=== PATIENT | female | born 1950 | race Caucasian/White ===

== ENCOUNTER → 2018-04-01 14:05 | Outpatient (CLI) | payer OTHER, SELFPAY ==
--- NOTE | 2018-04-01 14:17 | DI.RAD.S_ITS ---
PROCEDURE: XR CHEST 2V INDICATIONS: pain in left side of chest after rowing TECHNIQUE: 2 views of the chest were acquired. COMPARISON: None. FINDINGS: Surgical changes and devices: Arthritic screw within fracture deformity of the distal right clavicle.. Lungs and pleura: No pleural effusions or pneumothorax. Lungs are clear. Mediastinum: Mediastinal contours are normal. Heart size is normal. Bones and chest wall: Bilateral breast implants. No suspicious bony abnormalities. No visible rib fractures. Soft tissues appear unremarkable. IMPRESSION: No acute cardiopulmonary abnormality. Dictated by: Jorge Ocampo M.D. on 04/01/2018 at 14:54 Approved by: Jorge Ocampo M.D. on 04/01/2018 at 14:55
== END ==
PROVIDERS: Visit Provider Physician Assistant
DX: R07.1 Chest pain on breathing (principal)
CPT/HCPCS: 71046

== ENCOUNTER 2018-05-27 20:04 | Emergency (ER) | payer OTHER, SELFPAY ==
[2018-05-27] VITALS (11 sets, daily range): BP systolic 111–128; BP diastolic 62–83; PULSE 81–125; RESP 14–18; TEMP 37; O2SAT 94–98; BMI 24.2
--- NOTE | 2018-05-27 20:35 | ED.ARRPALP ---
HPI - Arrhythmia/Palpitations General Chief Complaint: Arrhythmia/Palpitations Stated Complaint: SKIPING BEATS Time Seen by Provider: 05/27/18 20:26 Source: patient Mode of arrival: ambulatory Limitations: no limitations History of Present Illness HPI narrative: Patient is a 68-year-old female who presents with arm head congestion on heart palpitations. She has not been feeling well for the last couple of days she has mostly been in bed. She has had a lot of head nasal congestion. Some cough. Today she has overall just feeling worse and she feels like her heart is fluttering. She does have a history of PSVT as she was previously on calcium channel blockers however with her doctor she was able to get off of them and has been well controlled for number of years. She is noted to be in atrial flutter here in the ED. She apparently was in [place] 3 weeks ago where she was diagnosed with bronchitis and put on azithromycin. She said that actually worked and she felt much better. She was seen 2 days ago the walk-in clinic for cough sore throat and headache. She was diagnosed with upper respiratory virus without antibiotics. She denies any fever sweats or chills Related Data Previous Rx's Medication Instructions Recorded levofloxacin [Levaquin] 750 mg PO DAILY #5 tab 05/27/18 Allergies Allergy/AdvReac Type Severity Reaction Status Date / Time diazepam [From VALIUM] Allergy Unknown Verified 05/27/18 20:16 morphine [MORPHINE] Allergy Unknown Verified 05/27/18 20:16 Sulfa (Sulfonamide Allergy Unknown Verified 05/27/18 20:16 Antibiotics) [SULFA (SULFONAMIDE ANTIBIOTICS)] Review of Systems Review of Systems All systems reviewed & are unremarkable except as noted in HPI and below Constitutional Reports body ache(s) and Reports headache(s) Eyes Denies change in vision, Denies eye discharge, Denies irritation and Denies loss of vision ENT Ears, Nose, Mouth, and Throat: Reports as per HPI and Reports headache(s) Comments: Head congestion Cardiovascular Reports as per HPI Respiratory Reports cough, Denies pain on inspiration, Denies pain with cough and Denies wheezing Gastrointestinal Gastrointestinal: Denies abdominal pain, Denies change in bowel habits, Denies diarrhea, Denies nausea and Denies vomiting Musculoskeletal Denies back pain, Denies muscle weakness, Denies numbness and Denies tingling Integumentary/Breasts Denies pruritus, Denies erythema, Denies rash and Denies wounds Neurologic Reports headache(s), Denies loss of vision, Denies numbness and Denies tingling Allergic/Immunologic Denies wheezing PFSH Medical History Healthy adult (Acute) Social History Smoking Status: Never smoker Exam Initial Vital Signs Initial Vital Signs: Vital Signs Temperature 98.6 F 05/27/18 20:14 Pulse Rate 106 H 05/27/18 20:14 Respiratory Rate 18 05/27/18 20:14 Blood Pressure 119/68 05/27/18 20:14 Pulse Oximetry 97 05/27/18 20:14 GENERAL: Well-appearing, well-nourished and in no acute distress. HEENT: Head atraumatic,EOMI, pupils reactive, face symmetric, CARDIOVASCULAR: Regular rate and rhythm without murmurs, rubs or gallops. RESPIRATORY: Breath sounds equal bilaterally, no wheezes rales or rhonchi. ABDOMEN: Soft, nontender. Normoactive bowel sounds all 4 quadrants. No guarding or rebound. EXTREMITIES: Normal range of motion, no clubbing or edema. Neurovascularly intact NEUROLOGICAL: Alert and oriented x4.Normal gait and speech. Cranial nerves II through XII grossly intact. SKIN: Warm, dry, no laceration, no petechiae, no rashes or lesions. Course Orders Ordered: ED Orders 05/27/18 20:15 B Type Natriuretic Peptide Stat Complete Blood Count AUTO DIFF Stat Comprehensive Metabolic Panel Stat D Dimer Stat Magnesium Stat Partial Thromboplastin Time Stat Prothrombin Time INR Stat Troponin & CK Cardiac Panel Stat 05/27/18 20:42 XR chest 1V Stat 05/27/18 21:14 CT angio chest PE protocol Stat Discontinued Medications Diltiazem HCl (Cardizem) 10 mg IV NOW ONE Stop: 05/27/18 20:43 Last Admin: 05/27/18 21:12 Dose: Sodium Chloride (Normal Saline 0.9%) 1,000 mls @ 1,000 mls/hr IV CONT PATSY Last Infusion: 05/27/18 22:15 Dose: 0 mls/hr Admin: 05/27/18 21:00 Dose: 1,000 mls/hr Levofloxacin (Levaquin) 750 mg PO NOW ONE Stop: 05/27/18 22:11 Last Admin: 05/27/18 22:19 Dose: 750 mg Vital Signs - 8 hr 05/27/18 20:50 05/27/18 20:55 05/27/18 21:00 Pulse Rate 120 H 122 H 91 H Respiratory Rate 17 17 16 Blood Pressure [Right Arm] 127/83 128/79 122/70 Pulse Oximetry 96 96 95 05/27/18 21:04 05/27/18 21:05 05/27/18 21:10 Pulse Rate 89 90 94 H Respiratory Rate 14 14 16 Blood Pressure [Right Arm] 122/70 122/67 126/68 Pulse Oximetry 94 94 95 05/27/18 21:15 05/27/18 21:45 05/27/18 22:24 Pulse Rate 90 83 81 Respiratory Rate 16 16 15 Blood Pressure [Right Arm] 111/70 122/66 118/62 Pulse Oximetry 94 96 98 MDM - Arrhythmia/Palpitations Lab Data Attestation: I reviewed the patient's lab results. Result diagrams: 05/27/18 20:15 05/27/18 20:15 Lab Results 05/27/18 05/27/18 05/27/18 Range/Units 20:15 20:15 20:15 WBC 3.9 L (4.5-11.0) X10^3/uL RBC 4.74 (4.0-5.2) X10^6/uL Hgb 14.2 (12.0-16.0) g/dL Hct 42.9 (36-46) % MCV 90.4 (80-100) fL MCH 30.0 (26-34) PG MCHC 33.2 (30-36) % RDW 12.7 (11.6-14.8) % Plt Count 249 (150-400) X10^3/uL Neut % (Auto) 24.2 L (50-75) % Lymph % (Auto) 58.2 H (25-40) % [place] % (Auto) 15.9 H (3-14) % Eos % (Auto) 1.4 L (2-4) % Baso % (Auto) 0.3 (0-2) % Neut # (Auto) 900 L (7608-0621) /uL PT 11.3 (10.1-12.7) SECONDS INR 1.1 (0.9-1.3) APTT 33 (26.4-36.2) SECONDS D-Dimer 742 H (<230) ng/mL Sodium 143 (137-145) mmol/L Potassium 3.7 (3.4-5.1) mmol/L Chloride 100 (98-107) mmol/L Carbon Dioxide 34 H (22-32) mmol/L BUN 17 (7-17) mg/dL Creatinine 0.90 (0.52-1.04) mg/dL Estimated GFR > 60.0 (>60) mL/min BUN/Creatinine Ratio 18.9 (6-22) Glucose 108 (80-110) mg/dL Calcium 9.2 (8.4-10.2) mg/dL Magnesium 2.2 (1.6-2.3) mg/dL Total Bilirubin 0.4 (0.2-1.3) mg/dL AST 31 (14-36) IU/L ALT 29 (9-52) IU/L Alkaline Phosphatase 79 (38-126) U/L Total Creatine Kinase 153 H (30-135) U/L CK-MB (CK-2) 1.09 (<2.37) ng/mL CK-MB (CK-2) Rel Index 0.7 L (1.5-5.0) % Troponin I < 0.012 (0.01-0.034) ng/mL B-Natriuretic Peptide 42.3 (<100) Total Protein 8.1 (6.3-8.2) g/dL Albumin 4.2 (3.5-5.0) g/dL Globulin 3.9 (1.7-4.1) g/dL Albumin/Globulin Ratio 1.1 (1.0-2.8) Imaging Data Chest x-ray: Radiologist's impression: PROCEDURE: XR CHEST 1V INDICATIONS: cough congestion, chest pain TECHNIQUE: One view of the chest was acquired. COMPARISON: [facility], , XR CHEST 2V, 04/01/2018, 13:54. FINDINGS: Surgical changes and devices: Bilateral breast implants with partially calcified capsules. Orthopedic screw in the right clavicle is stable. Lungs and pleura: No pleural effusions or pneumothorax. Lungs are clear. Mediastinum: Mediastinal contours appear normal. Heart size is normal. Bones and chest wall: No suspicious bony lesions. Overlying soft tissues appear unremarkable. IMPRESSION: No acute cardiopulmonary disease process. Dictated by: Abril Hayes MD, PhD on 05/27/2018 at 21:32 CT PE: Radiologist's impression: PROCEDURE: CT ANGIO CHEST PE PROTOCOL INDICATIONS: SOB, with +d.dimer and new onset a.fib TECHNIQUE: After the administration of intravenous contrast, 2 mm thick sections acquired from the pulmonary apices to the posterior costophrenic angles. 3-dimensional maximum intensity projection (MIP) coronal and sagittal reformats were then acquired through the thorax. For radiation dose reduction, the following was used: automated exposure control, adjustment of mA and/or kV according to patient size. COMPARISON: [facility], , XR CHEST 1V, 05/27/2018, 20:52. FINDINGS: Image quality: Excellent. Pulmonary arteries: Pulmonary arteries are normal in size, and demonstrate no intraluminal filling defects to suggest central pulmonary embolism. Lungs and pleura: Patchy groundglass opacities noted in the right upper lobe and small tree in bud opacities noted in the right lower lobe concerning for pneumonia. Atelectasis noted in the dependent portion of the lung bases. No pleural effusions or pneumothorax. Central and peripheral airways are patent. Mediastinum: Heart size is normal, without pericardial effusion. Enlarged right hilar lymph nodes are noted with largest node measuring 1.3 cm in short axis. 1.6 right paratracheal enlarged lymph node noted. Bilateral central peribronchial thickening noted. Thoracic aorta is normal in caliber and enhancement. Esophagus is normal in caliber. The small hiatal hernia. Bones and chest wall: Bilateral breast implants with partially calcified capsules noted. No suspicious bony lesions. Ribs and thoracic spine appear intact throughout. Spine degenerative disease and facet arthropathy noted. Thyroid gland contains a 1.2 cm nodule in the right lobe.. No axillary or supraclavicular adenopathy. Abdomen: Visualized upper abdominal solid organs appear normal in the early arterial phase of enhancement. IMPRESSION: 1. No pulmonary embolus. 2. Patchy ground less opacities in the right upper lobe and tree in bud opacities in the right lower lobe suspicious for early pneumonia. 3. Right hilar and mediastinal lymphadenopathy which could be reactive or neoplastic. 4. Bilateral central peribronchial thickening concerning for bronchitis. 5. 1.2 cm right thyroid nodule. Recommend thyroid ultrasound for definitive characterization. Dictated by: Abril Hayes MD, PhD on 05/27/2018 at 21:44 ECG Data Attestation: I personally reviewed and interpreted this ECG as follows: Prior ECG tracings: not available for review Interpretation: EKG 1. On atrial flutter rate [address] changes no T-wave inversions no priors to compare EKG 2. Normal sinus rhythm rate [address] changes MDM Narrative Medical decision making narrative: The patient converted back to sinus rhythm on her own without any medication. CT does reveal ground-glass opacities as she has had body aches and cough all consistent with pneumonia. This can also cause atrial flutter. She does not appear septic she has been afebrile here. Never hypotensive. She overall is feeling much better. Will put her on a course of Levaquin. Discharge Plan Departure Patient Disposition: Home Clinical Impression: Pneumonia, Atrial fibrillation Discharge Date/Time: 05/27/18 22:58 Interventions: ED Discharge Assessment Last Done: 05/27/18 22:57 Instructions: Atrial Fibrillation, DI for Pneumonia -- Adult Activity Restrictions/Additional Instructions: *You have been diagnosed with pneumonia, atrial fibrillation *What to do: Pneumonia likely cause the atrial fibrillation. Fever control, rest, fluids *Continue to take medications as directed Levaquin once a day until gone *Follow up with your primary care provider in 2-3 days *Return to ER if you should have increasing shortness of breath, heart palpitations dizziness, lightheadedness or any new, worsening or concerning symptoms Prescriptions: New levofloxacin [Levaquin] 750 mg tablet 750 mg PO DAILY Qty: 5 RF: 0
--- NOTE | 2018-05-27 20:42 | DI.RAD.S_ITS ---
PROCEDURE: XR CHEST 1V INDICATIONS: cough congestion, chest pain TECHNIQUE: One view of the chest was acquired. COMPARISON: [facility], CR, XR CHEST 2V, 04/01/2018, 13:54. FINDINGS: Surgical changes and devices: Bilateral breast implants with partially calcified capsules. Orthopedic screw in the right clavicle is stable. Lungs and pleura: No pleural effusions or pneumothorax. Lungs are clear. Mediastinum: Mediastinal contours appear normal. Heart size is normal. Bones and chest wall: No suspicious bony lesions. Overlying soft tissues appear unremarkable. IMPRESSION: No acute cardiopulmonary disease process. Dictated by: Abril Hayes MD, PhD on 05/27/2018 at 21:32 Approved by: Abril Hayes MD, PhD on 05/27/2018 at 21:32
--- NOTE | 2018-05-27 20:54 | PC.NURSE ---
While this RN was getting ready to push IV Cardizem pt converted to a NSR rate of 83,approx 30 seconds later she went back into afib rate in 130's. Approx 30 sec later pt converted to a NST rate of 120. Repeat EKG ordered,Dr Wills aware.
[2018-05-27 20:57] LABS: Add Manual Diff / Slide Review NO; Alanine Aminotransferase 29 IU/L (9-52); Albumin 4.2 g/dL (3.5-5.0); Albumin Globulin Ratio 1.1 (1.0-2.8); Alkaline Phosphatase 79 U/L (38-126); Aspartate Aminotransferase 31 IU/L (14-36); BUN Creatinine Ratio 18.9 (6-22); Basophils Percent Auto 0.3 % (0-2); Bilirubin Total 0.4 mg/dL (0.2-1.3); Blood Urea Nitrogen 17 mg/dL (7-17); Calcium 9.2 mg/dL (8.4-10.2); Carbon Dioxide 34 mmol/L (22-32); Chloride 100 mmol/L (98-107); Creatine Kinase 153 U/L (30-135); Eosinophils Percent Auto 1.4 % (2-4); Estimated Glomerular Filt Rate > 60.0 mL/min (>60); Globulin 3.9 g/dL (1.7-4.1); Glucose 108 mg/dL (80-110); HEMOLYSIS < 15 (0-50); Hematocrit 42.9 % (36-46); Hemoglobin 14.2 g/dL (12.0-16.0); Lymphocytes Percent Auto 58.2 % (25-40); Magnesium 2.2 mg/dL (1.6-2.3); Mean Corpuscular HGB Conc 33.2 % (30-36); Mean Corpuscular Volume 90.4 fL (80-100); Monocytes Percent Auto 15.9 % (3-14); Neutrophils Absolute Auto 900 /uL (3000-5900); Neutrophils Percent Auto 24.2 % (50-75); Platelet Count 249 X10^3/uL (150-400); Potassium 3.7 mmol/L (3.4-5.1); Red Blood Cell Count 4.74 X10^6/uL (4.0-5.2); Red Cell Distribution Width 12.7 % (11.6-14.8); Sodium 143 mmol/L (137-145); Total Protein 8.1 g/dL (6.3-8.2); White Blood Cell Count 3.9 X10^3/uL (4.5-11.0)
[2018-05-27] MEDS: SODIUM CHLORIDE 0.9% 1,000 ML 1000 ML IV (21:00)
[2018-05-27 21:01] LABS: INR 1.1 (0.9-1.3); Prothrombin Time 11.3 SECONDS (10.1-12.7)
[2018-05-27 21:04] LABS: PTT Partial Thromboplastin Tim 33 SECONDS (26.4-36.2)
[2018-05-27 21:05] LABS: D Dimer 742 ng/mL (<230)
[2018-05-27 21:12] LABS: CKMB % Relative Index 0.7 % (1.5-5.0); Creatine Kinase MB 1.09 ng/mL (<2.37)
[2018-05-27 21:13] LABS: Troponin I < 0.012 ng/mL (0.01-0.034)
--- NOTE | 2018-05-27 21:14 | DI.CT.S_ITS ---
PROCEDURE: CT ANGIO CHEST PE PROTOCOL INDICATIONS: SOB, with +d.dimer and new onset a.fib TECHNIQUE: After the administration of intravenous contrast, 2 mm thick sections acquired from the pulmonary apices to the posterior costophrenic angles. 3-dimensional maximum intensity projection (MIP) coronal and sagittal reformats were then acquired through the thorax. For radiation dose reduction, the following was used: automated exposure control, adjustment of mA and/or kV according to patient size. COMPARISON: [facility], CR, XR CHEST 1V, 05/27/2018, 20:52. FINDINGS: Image quality: Excellent. Pulmonary arteries: Pulmonary arteries are normal in size, and demonstrate no intraluminal filling defects to suggest central pulmonary embolism. Lungs and pleura: Patchy groundglass opacities noted in the right upper lobe and small tree in bud opacities noted in the right lower lobe concerning for pneumonia. Atelectasis noted in the dependent portion of the lung bases. No pleural effusions or pneumothorax. Central and peripheral airways are patent. Mediastinum: Heart size is normal, without pericardial effusion. Enlarged right hilar lymph nodes are noted with largest node measuring 1.3 cm in short axis. 1.6 right paratracheal enlarged lymph node noted. Bilateral central peribronchial thickening noted. Thoracic aorta is normal in caliber and enhancement. Esophagus is normal in caliber. The small hiatal hernia. Bones and chest wall: Bilateral breast implants with partially calcified capsules noted. No suspicious bony lesions. Ribs and thoracic spine appear intact throughout. Spine degenerative disease and facet arthropathy noted. Thyroid gland contains a 1.2 cm nodule in the right lobe.. No axillary or supraclavicular adenopathy. Abdomen: Visualized upper abdominal solid organs appear normal in the early arterial phase of enhancement. IMPRESSION: 1. No pulmonary embolus. 2. Patchy ground less opacities in the right upper lobe and tree in bud opacities in the right lower lobe suspicious for early pneumonia. 3. Right hilar and mediastinal lymphadenopathy which could be reactive or neoplastic. 4. Bilateral central peribronchial thickening concerning for bronchitis. 5. 1.2 cm right thyroid nodule. Recommend thyroid ultrasound for definitive characterization. Dictated by: Abril Hayes MD, PhD on 05/27/2018 at 21:44 Approved by: Abril Hayes MD, PhD on 05/27/2018 at 21:51
[2018-05-27 21:16] LABS: B Type Natriuretic Peptide 42.3 (<100)
[2018-05-27] MEDS: levoFLOXacin 250 MG TABLET 750 MG PO (22:19)
== END 2018-05-27 22:58 | disposition home or self-care (01) ==
PROVIDERS: Emergency Provider Emergency Medicine
DX: J18.9 Pneumonia, unspecified organism (principal); I48.91 Unspecified atrial fibrillation
CPT/HCPCS: 36415; 36591; 71045; 71275; 80053; 82550; 82553; 83735; 83880; 84484; 85025; 85379; 85610; 85730; 93005; 96360; 99285; Q9967

== ENCOUNTER 2019-01-02 14:25 | Emergency (ER) | payer OTHER, SELFPAY ==
[2019-01-02 14:29] VITALS: BMI 24.5
--- NOTE | 2019-01-02 14:31 | DI.RAD.S_ITS ---
PROCEDURE: XR CHEST 1V INDICATIONS: chest pain TECHNIQUE: One view of the chest was acquired. COMPARISON: [facility], CR, XR CHEST 1V, 05/27/2018, 20:52. [facility], CR, XR CHEST 2V, 04/01/2018, 13:54. FINDINGS: Surgical changes and devices: An internal fixation pin is noted within the distal right clavicle where it fixates a chronic healed fracture. Peripherally calcified bilateral breast implants are again noted, similar to comparison exam. Multiple monitoring leads project over the chest. Lungs and pleura: No pleural effusions or pneumothoraces. There is diffuse right greater than left hazy opacification of the lung bases. There is a 1.0 cm rounded nodular opacity projecting over the right lung base. Mediastinum: Mediastinal contours appear normal. Heart size is normal. Bones and chest wall: No acute osseous abnormality is identified. IMPRESSION: 1. Diffuse hazy bibasilar pulmonary opacities likely representing atelectasis or mild pulmonary edema, with aspiration or pneumonia thought less likely. 2. 1.0 cm rounded nodular opacity projecting over the right lung base is favored to represent a nipple shadow, with a true pulmonary nodule thought less likely. Consider repeat chest radiographs with nipple markers if there is continued clinical concern. Dictated by: Aidan Milian M.D. on 01/02/2019 at 14:44 Approved by: Aidan Milian M.D. on 01/02/2019 at 14:53
[2019-01-02 14:35] VITALS: BP 152/66; PULSE 72; RESP 22; O2SAT 99
[2019-01-02 14:36] VITALS: TEMP 36.7
--- NOTE | 2019-01-02 14:48 | ED.ARRPALP ---
HPI - Arrhythmia/Palpitations <Etelvina Ayoub PA-C - Last Filed: 01/02/19 20:08> General Chief Complaint: Arrhythmia/Palpitations Stated Complaint: states irregular heart beat Time Seen by Provider: 01/02/19 14:48 Source: patient Mode of arrival: ambulatory Limitations: no limitations History of Present Illness HPI narrative: This 68-year-old female returns to ED secondary to recurrent palpitations. She states that onset was about 75 minutes prior to arrival here, and palpitations lasted for about 45 minutes. Resolved when she got here. She states sensation was an irregular pulse that she could feel in her neck, heart to fast and skipping beats. She states that she felt very slight chest tightness and faintness with the palpitations. She states that the degree of irregularity would wax and wane somewhat throughout the 45 minutes but fairly persistent. She states that she was walking at the time that this started, but not as strenuous as her usual walk that she does daily. Sitting down or resting did not seem to resolve it. She states that she tried cough and bearing down as she has with her PSVT in the past and that did not resolve symptoms so thought she should have evaluated. She has been feeling well recently without any illness. She states that she started daily Valtrex about 6 weeks ago, no new medications. She states that she has been taking some vitamins for the last few months, nothing new in the last couple of weeks. She denies chest pain currently. She denies any nausea or vomiting today. She is not feeling lightheaded currently. She denies any new pain or swelling in her extremities or other complaints on systems review. She states that she did see her PCP after episode of atrial flutter seen on her last visit here but there was no EKG to review and did not feel further workup was needed at the time. She states that she did have conveyor monitor placed in the past for a couple of weeks and did not get palpitations while she had it on. Related Data Home Medications Medication Instructions Recorded Confirmed valacyclovir 1,000 mg PO DAILY 01/02/19 Allergies Allergy/AdvReac Type Severity Reaction Status Date / Time diazepam [From VALIUM] Allergy Unknown Verified 01/02/19 14:30 morphine [MORPHINE] Allergy Unknown Verified 01/02/19 14:30 Sulfa (Sulfonamide Allergy Unknown Verified 01/02/19 14:30 Antibiotics) [SULFA (SULFONAMIDE ANTIBIOTICS)] Review of Systems <Etelvina Ayoub PA-C - Last Filed: 01/02/19 20:08> Review of Systems ROS Unobtainable: All systems reviewed & are unremarkable except as noted in HPI and below PFSH <Etelvina Ayoub PA-C - Last Filed: 01/02/19 20:08> Medical History (Updated 01/02/19 @ 20:03 by Etelvina Ayoub PA-C) Atrial flutter (Resolved) History of PSVT (paroxysmal supraventricular tachycardia) (Chronic) Surgical History (Updated 01/02/19 @ 20:03 by Etelvina Ayoub PA-C) No history of previous surgery (Chronic) Social History Smoking Status: Never smoker Social History Smoking Status: Never smoker Exam <Etelvina Ayoub PA-C - Last Filed: 01/02/19 20:08> Narrative Exam Narrative: GENERAL APPEARANCE: Patient sitting comfortably, in no distress. HEENT: PERRL, EOMI, normal oropharynx NECK/THYROID: Neck supple, no JVD. LUNGS: Clear to auscultation bilaterally. HEART: Regular rate and rhythm without murmur, rare single skip, normal S1, S2, no S3 or S4. ABDOMEN: Soft, NT, ND, + BS x 4 quadrants EXTREMITIES: No edema. No calf tenderness NEUROLOGIC: Alert and oriented, normal speech, gait and coordination. Initial Vital Signs Initial Vital Signs: Vital Signs Pulse Rate 72 01/02/19 14:35 Respiratory Rate 22 01/02/19 14:35 Blood Pressure 152/66 H 01/02/19 14:35 Pulse Oximetry 99 01/02/19 14:35 <Priya Wills DO - Last Filed: 01/05/19 07:48> Initial Vital Signs Initial Vital Signs: Vital Signs Pulse Rate 72 01/02/19 14:35 Respiratory Rate 22 01/02/19 14:35 Blood Pressure 152/66 H 01/02/19 14:35 Pulse Oximetry 99 01/02/19 14:35 Scores <Etelvina Ayoub PA-C - Last Filed: 01/02/19 20:08> HEART Score Heart Score history: Slightly Suspicious Heart Score EKG: Normal Heart Score Age: > or = 65 years old Heart Score risk factors: No known risk factors Heart Score troponin: < or = to normal limit Heart Score Total: 2 Course <Etelvina Ayoub PA-C - Last Filed: 01/02/19 20:08> Additional Information: Patient has been completely asymptomatic during her stay here. She had some mild chest discomfort associated with the palpitations, lab workup is negative and she is feeling well now. Reviewed previous finding of atrial flutter with her and question whether this could be a recurrence of that or atrial fibrillation verses PSVT (it did not resolve as usual). She states that she did follow up with her PCP but no further workup was done at that time. She has had monitoring done in the past prior to this. Advised to start low-dose ASA once daily in case she is having paroxysmal AFib/flutter. Advised follow-up with PCP this week and given previous EKG from May that was of concern as well as today's. She agreed to return to ED if any acutely worsening symptoms again Orders Ordered: Discontinued Medications Aspirin (Aspirin Chew) 324 mg PO NOW ONE Stop: 01/02/19 14:32 Last Admin: 01/02/19 15:00 Dose: Not Given Sodium Chloride (Normal Saline 0.9%) 1,000 mls @ 150 mls/hr IV CONT PATSY Last Infusion: 01/02/19 16:08 Dose: 0 mls/hr Admin: 01/02/19 14:56 Dose: 150 mls/hr Vital Signs - 8 hr 01/02/19 14:35 01/02/19 14:36 01/02/19 15:00 Temperature 98.0 F Pulse Rate 72 64 Respiratory Rate 22 16 Blood Pressure Blood Pressure [Left Arm] 152/66 H 128/73 Pulse Oximetry 99 97 01/02/19 16:08 01/02/19 16:17 Temperature Pulse Rate 71 57 L Respiratory Rate 15 16 Blood Pressure 131/69 Blood Pressure [Left Arm] 141/72 H Pulse Oximetry 99 100 <Priya Wills DO - Last Filed: 01/05/19 07:48> Orders Ordered: Discontinued Medications Aspirin (Aspirin Chew) 324 mg PO NOW ONE Stop: 01/02/19 14:32 Last Admin: 04/29/19 15:00 Dose: Not Given Sodium Chloride (Normal Saline 0.9%) 1,000 mls @ 150 mls/hr IV CONT PATSY Last Infusion: 01/02/19 16:08 Dose: 0 mls/hr Admin: 01/02/19 14:56 Dose: 150 mls/hr Vital Signs - 8 hr 01/02/19 14:35 01/02/19 14:36 01/02/19 15:00 Temperature 98.0 F Pulse Rate 72 64 Respiratory Rate 22 16 Blood Pressure Blood Pressure [Left Arm] 152/66 H 128/73 Pulse Oximetry 99 97 01/02/19 16:08 01/02/19 16:17 Temperature Pulse Rate 71 57 L Respiratory Rate 15 16 Blood Pressure 131/69 Blood Pressure [Left Arm] 141/72 H Pulse Oximetry 99 100 MDM - Arrhythmia/Palpitations <Etelvina Ayoub PA-C - Last Filed: 01/02/19 20:08> Lab Data Attestation: I reviewed the patient's lab results. Result diagrams: 01/02/19 14:40 01/02/19 14:40 Lab Results 01/02/19 01/02/19 01/02/19 Range/Units 14:40 14:40 14:40 WBC 3.9 L (4.5-11.0) X10^3/uL RBC 4.18 (4.0-5.2) X10^6/uL Hgb 13.1 (12.0-16.0) g/dL Hct 38.7 (36-46) % MCV 92.7 (80-100) fL MCH 31.4 (26-34) PG MCHC 33.9 (30-36) % RDW 14.7 (11.6-14.8) % Plt Count 211 (150-400) X10^3/uL Neut % (Auto) Not Reportable Lymph % (Auto) Not Reportable [place] % (Auto) Not Reportable Eos % (Auto) Not Reportable Baso % (Auto) Not Reportable Lymph # (Auto) Not Reportable [place] # (Auto) Not Reportable Baso # (Auto) Not Reportable Total Counted 100 Seg Neutrophils % 20.0 L (38-70) % Band Neutrophils % 1.0 L (3-7) % Lymphocytes % (Manual) 63.0 H (25-45) % Atypical Lymphs % 8.0 H ( - 0) % Monocytes % (Manual) 7.0 (2-11) % Eosinophils % (Manual) 1.0 L (2-4) % Neutrophils # (Manual) 819 L (3975-0663) /uL RBC Morphology Normal morphology Smear Path Review Sodium 137 (137-145) mmol/L Potassium 3.5 (3.4-5.1) mmol/L Chloride 100 (98-107) mmol/L Carbon Dioxide 28 (22-32) mmol/L BUN 16 (7-17) mg/dL Creatinine 0.80 (0.52-1.04) mg/dL Estimated GFR > 60.0 (>60) mL/min BUN/Creatinine Ratio 20.0 (6-22) Glucose 84 (80-110) mg/dL Calcium 9.0 (8.4-10.2) mg/dL Magnesium 1.5 L (1.6-2.3) mg/dL Total Bilirubin 0.4 (0.2-1.3) mg/dL AST 30 (14-36) IU/L ALT 24 (9-52) IU/L Alkaline Phosphatase 84 (38-126) U/L Total Creatine Kinase 110 (30-135) U/L CK-MB (CK-2) 1.58 (<2.37) ng/mL CK-MB (CK-2) Rel Index 1.4 L (1.5-5.0) % Troponin I < 0.012 (0.01-0.034) ng/mL Total Protein 7.6 (6.3-8.2) g/dL Albumin 4.4 (3.5-5.0) g/dL Globulin 3.2 (1.7-4.1) g/dL Albumin/Globulin Ratio 1.4 (1.0-2.8) Lipase 105 (23-300) U/L Imaging Data Chest x-ray: Radiologist's impression: 32 Etelvina Ayoub PA-C Find Patient Imaging Jinny Saunders 68 F 1950 ACTIVITY DATE EXAM STATUS AUTHOR 01/02/19 14:[address] [address] XRay Report Signed Patient: Ham Saundersidi GMR#: [id number] : 8Acct:[id number] Age/Sex: 68 / FDate of Service: 01/02/19 Loc: ED Accession Number: [id number] Procedure: XR chest 1V Ordering Provider: Priya Wills D.O. PROCEDURE: XR CHEST 1V INDICATIONS: chest pain TECHNIQUE: One view of the chest was acquired. COMPARISON: [facility], CR, XR CHEST 1V, 05/27/2018, 20:52. [facility], CR, XR CHEST 2V, 04/01/2018, 13:54. FINDINGS: Surgical changes and devices: An internal fixation pin is noted within the distal right clavicle where it fixates a chronic healed fracture. Peripherally calcified bilateral breast implants are again noted, similar to comparison exam. Multiple monitoring leads project over the chest. Lungs and pleura: No pleural effusions or pneumothoraces. There is diffuse right greater than left hazy opacification of the lung bases. There is a 1.0 cm rounded nodular opacity projecting over the right lung base. Mediastinum: Mediastinal contours appear normal. Heart size is normal. Bones and chest wall: No acute osseous abnormality is identified. IMPRESSION: 1. Diffuse hazy bibasilar pulmonary opacities likely representing atelectasis or mild pulmonary edema, with aspiration or pneumonia thought less likely. 2. 1.0 cm rounded nodular opacity projecting over the right lung base is favored to represent a nipple shadow, with a true pulmonary nodule thought less likely. Consider repeat chest radiographs with nipple markers if there is continued clinical concern. Dictated by: Aidan Milian M.D. on 01/02/2019 at 14:44 Approved by: Aidan Milian M.D. on 01/02/2019 at 14:53 ECG Data Attestation: I personally reviewed and interpreted this ECG as follows: (Normal sinus rhythm, rate 75, normal axis) <Priya Wills DO - Last Filed: 01/05/19 07:48> Lab Data Attestation: I reviewed the patient's lab results. Lab Results 01/02/19 01/02/19 01/02/19 Range/Units 14:40 14:40 14:40 WBC 3.9 L (4.5-11.0) X10^3/uL RBC 4.18 (4.0-5.2) X10^6/uL Hgb 13.1 (12.0-16.0) g/dL Hct 38.7 (36-46) % MCV 92.7 (80-100) fL MCH 31.4 (26-34) PG MCHC 33.9 (30-36) % RDW 14.7 (11.6-14.8) % Plt Count 211 (150-400) X10^3/uL Neut % (Auto) Not Reportable Lymph % (Auto) Not Reportable [place] % (Auto) Not Reportable Eos % (Auto) Not Reportable Baso % (Auto) Not Reportable Lymph # (Auto) Not Reportable [place] # (Auto) Not Reportable Baso # (Auto) Not Reportable Total Counted 100 Seg Neutrophils % 20.0 L (38-70) % Band Neutrophils % 1.0 L (3-7) % Lymphocytes % (Manual) 63.0 H (25-45) % Atypical Lymphs % 8.0 H ( - 0) % Monocytes % (Manual) 7.0 (2-11) % Eosinophils % (Manual) 1.0 L (2-4) % Neutrophils # (Manual) 819 L (9488-6165) /uL RBC Morphology Normal morphology Smear Path Review Sodium 137 (137-145) mmol/L Potassium 3.5 (3.4-5.1) mmol/L Chloride 100 (98-107) mmol/L Carbon Dioxide 28 (22-32) mmol/L BUN 16 (7-17) mg/dL Creatinine 0.80 (0.52-1.04) mg/dL Estimated GFR > 60.0 (>60) mL/min BUN/Creatinine Ratio 20.0 (6-22) Glucose 84 (80-110) mg/dL Calcium 9.0 (8.4-10.2) mg/dL Magnesium 1.5 L (1.6-2.3) mg/dL Total Bilirubin 0.4 (0.2-1.3) mg/dL AST 30 (14-36) IU/L ALT 24 (9-52) IU/L Alkaline Phosphatase 84 (38-126) U/L Total Creatine Kinase 110 (30-135) U/L CK-MB (CK-2) 1.58 (<2.37) ng/mL CK-MB (CK-2) Rel Index 1.4 L (1.5-5.0) % Troponin I < 0.012 (0.01-0.034) ng/mL Total Protein 7.6 (6.3-8.2) g/dL Albumin 4.4 (3.5-5.0) g/dL Globulin 3.2 (1.7-4.1) g/dL Albumin/Globulin Ratio 1.4 (1.0-2.8) Lipase 105 (23-300) U/L ECG Data Attestation: I personally reviewed and interpreted this ECG as follows: Prior ECG tracings: available for review Interpretation: Normal sinus rhythm rate [address] changes or T-wave inversions appear interval 176 QTC 438 Discharge Plan Departure Patient Disposition: Home Clinical Impression: Palpitations Discharge Date/Time: 01/02/19 16:20 Interventions: ED Discharge Assessment Last Done: 01/02/19 16:19 Instructions: DI for Arrhythmias, DI for Palpitations Activity Restrictions/Additional Instructions: As we talked about, please return to the closest ED right away if you have acutely worsening symptoms again. Otherwise, please start 1 baby aspirin (81 mg) daily every day in case you are having intermittent episodes of atrial fibrillation/flutter again. On the EKG today, your heart rhythm was normal, but you did have that previously when you were here, and in some people this happened on and off just like your SVT has in the past. The aspirin can help to reduce risk of stroke related to that rhythm if you do have it, so it makes sense to take it until you follow up with your doctor in [place] and determine what to do next for workup. You may need to have another heart monitor done again. Please see your PCP for follow up this week Prescriptions: No Action valacyclovir 1 gram Tablet 1,000 mg PO DAILY RF: 0 Referrals: Manish Mac [Other] <Priya Wills DO - Last Filed: 01/05/19 07:48> Cosign ED Attending Naya Attestation: I was immediately available in the department for consultation. Documentation has been reviewed. I agree with assessment and plan.
[2019-01-02 14:56] LABS: Hematocrit 38.7 % (36-46); Hemoglobin 13.1 g/dL (12.0-16.0); Mean Corpuscular HGB Conc 33.9 % (30-36); Mean Corpuscular Hemoglobin 31.4 PG (26-34); Mean Corpuscular Volume 92.7 fL (80-100); Platelet Count 211 X10^3/uL (150-400); Red Blood Cell Count 4.18 X10^6/uL (4.0-5.2); Red Cell Distribution Width 14.7 % (11.6-14.8); White Blood Cell Count 3.9 X10^3/uL (4.5-11.0)
[2019-01-02] MEDS: SODIUM CHLORIDE 0.9% 1,000 ML 150 ML IV (14:56)
[2019-01-02 14:57] LABS: Add Manual Diff / Slide Review YES
[2019-01-02 15:00] VITALS: BP 128/73; PULSE 64; RESP 16; O2SAT 97
--- NOTE | 2019-01-02 15:09 | ED_ITS ---
HPI - Arrhythmia/Palpitations <Etelvina Ayoub PA-C - Last Filed: 01/02/19 20:08> General Chief Complaint: Arrhythmia/Palpitations Stated Complaint: states irregular heart beat Time Seen by Provider: 01/02/19 14:48 Source: patient Mode of arrival: ambulatory Limitations: no limitations History of Present Illness HPI narrative: This 68-year-old female returns to ED secondary to recurrent p alpitations. She states that onset was about 75 minutes prior to arrival here, and palpitations lasted for about 45 minutes. Resolved when she got here. She states sensation was an irregular pulse that she could feel in her neck, heart to fast and skipping beats. She states that she felt very slight chest tightness and faintness with the palpitations. She states that the degree of irregularity would wax and wane somewhat throughout the 45 minutes but fairly persistent. She states that she was walking at the time that this started, but not as strenuous as her usual walk that she does daily. Sitting down or resting did not seem to resolve it. She states that she tried cough and bearing down as she has with her PSVT in the past and that did not resolve symptoms so thought she should have evaluated. She has been feeling well recently without any illness. She states that she started daily Valtrex about 6 weeks ago, no new medications. She states that she has been taking some vitamins for the last few months, nothing new in the last couple of weeks. She denies chest pain curren tly. She denies any nausea or vomiting today. She is not feeling lightheaded currently. She denies any new pain or swelling in her extremities or other complaints on systems review. She states that she did see her PCP after episode of atrial flutter seen on her last visit here but there was no EKG to review and did not feel further workup was needed at the time. She states that she did have satellite project site monitor placed in the past for a couple of weeks and did not get palpitations while she had it on. Related Data Home Medications Medication Instructions Recorded Confirmed valacyclovir 1,000 mg PO DAILY 01/02/19 Allergies Allergy/AdvReac Type Severity Reaction Status Date / Time diazepam [From VALIUM] Allergy Unknown Verified 01/02/19 14:30 morphine [MORPHINE] Allergy Unknown Verified 01/02/19 14:30 Sulfa (Sulfonamide Allergy Unknown Verified 01/02/19 14:30 Antibiotics) [SULFA (SULFONAMIDE ANTIBIOTICS)] Review of Systems <Etelvina Ayoub PA-C - Last Filed: 01/02/19 20:08> Review of Systems ROS Unobtainable: All systems reviewed & are unremarkable except as noted in HPI and below PFSH <Etelvina Ayoub PA-C - Last Filed: 01/02/19 20:08> Medical History (Updated 01/02/19 @ 20:03 by Etelvina Ayoub PA-C) Atrial flutter (Resolved) History of PSVT (paroxysmal supraventricular tachycardia) (Chronic) Surgical History (Updated 01/02/19 @ 20:03 by Etelvina Ayoub PA-C) No history of previous surgery (Chronic) Social History Smoking Status: Never smoker Social History Smoking Status: Never smoker Exam <Etelvina Ayoub PA-C - Last Filed: 01/02/19 20:08> Narrative Exam Narrative: GENERAL APPEARANCE: Patient sitting comfortably, in no distress. HEENT: PERRL, EOMI, normal oropharynx NECK/THYROID: Neck supple, no JVD. LUNGS: Clear to auscultation bilaterally. HEART: Regular rate and rhythm without murmur, rare single skip, normal S1, S2, no S3 or S4. ABDOMEN: Soft, NT, ND, + BS x 4 quadrants EXTREMITIES: No edema. No calf tenderness NEUROLOGIC: Alert and oriented, normal speech, gait and coordination. Initial Vital Signs Initial Vital Signs: Vital Signs Pulse Rate 72 01/02/19 14:35 Respiratory Rate 22 01/02/19 14:35 Blood Pressure 152/66 H 01/02/19 14:35 Pulse Oximetry 99 01/02/19 14:35 <Priya Wills DO - Last Filed: 01/05/19 07:48> Initial Vital Signs Initial Vital Signs: Vital Signs Pulse Rate 72 01/02/19 14:35 Respiratory Rate 22 01/02/19 14:35 Blood Pressure 152/66 H 01/02/19 14:35 Pulse Oximetry 99 01/02/19 14:35 Scores <Etelvina Ayoub PA-C - Last Filed: 01/02/19 20:08> HEART Score Heart Score history: Slightly Suspicious Heart Score EKG: Normal Heart Score Age: > or = 65 years old Heart Score risk factors: No known risk factors Heart Score troponin: < or = to normal limit Heart Score Total: 2 Course <Etelvina Ayoub PA-C - Last Filed: 01/02/19 20:08> Additional Information: Patient has been completely asymptomatic during her stay here. She had some mild chest discomfort associated with the palpitations, lab workup is negative and she is feeling well now. Reviewed previous finding of atrial flutter with her and question whether this could be a recurrence of that or atrial fibrillation verses PSVT (it did not resolve as usual). She states that she did follow up with her PCP but no further workup was done at that time. She has had monitoring done in the past prior to this. Advised to start low- dose ASA once daily in case she is having paroxysmal AFib/flutter. Advised follow-up with PCP this week and given previous EKG from May that was of concern as well as today's. She agreed to return to ED if any acutely worsening symptoms again Orders Ordered: Discontinued Medications Aspirin (Aspirin Chew) 324 mg PO NOW ONE Stop: 01/02/19 14:32 Last Admin: 01/02/19 15:00 Dose: Not Given Sodium Chloride (Normal Saline 0.9%) 1,000 mls @ 150 mls/hr IV CONT PATSY Last Infusion: 01/02/19 16:08 Dose: 0 mls/hr Admin: 01/02/19 14:56 Dose: 150 mls/hr Vital Signs - 8 hr 01/02/19 14:35 01/02/19 14:36 01/02/19 15:00 Temperature 98.0 F Pulse Rate 72 64 Respiratory Rate 22 16 Blood Pressure Blood Pressure [Left Arm] 152/66 H 128/73 Pulse Oximetry 99 97 01/02/19 16:08 01/02/19 16:17 Temperature Pulse Rate 71 57 L Respiratory Rate 15 16 Blood Pressure 131/69 Blood Pressure [Left Arm] 141/72 H Pulse Oximetry 99 100 <Priya Wills DO - Last Filed: 01/05/19 07:48> Orders Ordered: Discontinued Medications Aspirin (Aspirin Chew) 324 mg PO NOW ONE Stop: 01/02/19 14:32 Last Admin: 01/02/19 15:00 Dose: Not Given Sodium Chloride (Normal Saline 0.9%) 1,000 mls @ 150 mls/hr IV CONT PATSY Last Infusion: 01/02/19 16:08 Dose: 0 mls/hr Admin: 01/02/19 14:56 Dose: 150 mls/hr Vital Signs - 8 hr 01/02/19 14:35 01/02/19 14:36 01/02/19 15:00 Temperature 98.0 F Pulse Rate 72 64 Respiratory Rate 22 16 Blood Pressure Blood Pressure [Left Arm] 152/66 H 128/73 Pulse Oximetry 99 97 01/02/19 16:08 01/02/19 16:17 Temperature Pulse Rate 71 57 L Respiratory Rate 15 16 Blood Pressure 131/69 Blood Pressure [Left Arm] 141/72 H Pulse Oximetry 99 100 MDM - Arrhythmia/Palpitations <Etelvina Ayoub PA-C - Last Filed: 01/02/19 20:08> Lab Data Attestation: I reviewed the patient's lab results. Result diagrams: 01/02/19 14:40 01/02/19 14:40 Lab Results 01/02/19 01/02/19 01/02/19 Range/Units 14:40 14:40 14:40 WBC 3.9 L (4.5-11.0) X10^3/uL RBC 4.18 (4.0-5.2) X10^6/uL Hgb 13.1 (12.0-16.0) g/dL Hct 38.7 (36-46) % MCV 92.7 (80-100) fL MCH 31.4 (26-34) PG MCHC 33.9 (30-36) % RDW 14.7 (11.6-14.8) % Plt Count 211 (150-400) X10^3/uL Neut % (Auto) Not Reportable Lymph % (Auto) Not Reportable [place] % (Auto) Not Reportable Eos % (Auto) Not Reportable Baso % (Auto) Not Reportable Lymph # (Auto) Not Reportable [place] # (Auto) Not Reportable Baso # (Auto) Not Reportable Total Counted 100 Seg Neutrophils % 20.0 L (38-70) % Band Neutrophils % 1.0 L (3-7) % Lymphocytes % (Manual) 63.0 H (25-45) % Atypical Lymphs % 8.0 H ( - 0) % Monocytes % (Manual) 7.0 (2-11) % Eosinophils % (Manual) 1.0 L (2-4) % Neutrophils # (Manual) 819 L (5997-8656) /uL RBC Morphology Normal morphology Smear Path Review Sodium 137 (137-145) mmol/L Potassium 3.5 (3.4-5.1) mmol/L Chloride 100 (98-107) mmol/L Carbon Dioxide 28 (22-32) mmol/L BUN 16 (7-17) mg/dL Creatinine 0.80 (0.52-1.04) mg/dL Estimated GFR > 60.0 (>60) mL/min BUN/Creatinine Ratio 20.0 (6-22) Glucose 84 (80-110) mg/dL Calcium 9.0 (8.4-10.2) mg/dL Magnesium 1.5 L (1.6-2.3) mg/dL Total Bilirubin 0.4 (0.2-1.3) mg/dL AST 30 (14-36) IU/L ALT 24 (9-52) IU/L Alkaline Phosphatase 84 (38-126) U/L Total Creatine Kinase 110 (30-135) U/L CK-MB (CK-2) 1.58 (<2.37) ng/mL CK-MB (CK-2) Rel Index 1.4 L (1.5-5.0) % Troponin I < 0.012 (0.01-0.034) ng/mL Total Protein 7.6 (6.3-8.2) g/dL Albumin 4.4 (3.5-5.0) g/dL Globulin 3.2 (1.7-4.1) g/dL Albumin/Globulin Ratio 1.4 (1.0-2.8) Lipase 105 (23-300) U/L Imaging Data Chest x-ray: Radiologist's impression: 32 Etelvina Ayoub PA-C Find Patient Imaging Jinny Saunders 68 F 1950 ACTIVITY DATE EXAM STATUS AUTHOR 01/02/19 14:[address] [address] XRay Report Signed Patient: Jinny Saunders GMR#: [id number] : 8Acct:[id number] Age/Sex: 68 / FDate of Service: 01/02/19 Loc: ED Accession Number: [id number] Procedure: XR chest 1V Ordering Provider: Priya Wills D.O. PROCEDURE: XR CHEST 1V INDICATIONS: chest pain TECHNIQUE: One view of the chest was acquired. COMPARISON: [facility], CR, XR CHEST 1V, 05/27/2018, 20:52. [facility], CR, XR CHEST 2V, 04/01/2018, 13:54. FINDINGS: Surgical changes and devices: An internal fixation pin is noted within the distal right clavicle where it fixates a chronic healed fracture. Peripherally calcified bilateral breast implants are again noted, similar to comparison exam. Multiple monitoring leads project over the chest. Lungs and pleura: No pleural effusions or pneumothoraces. There is diffuse right greater than left hazy opacification of the lung bases. There is a 1.0 cm rounded nodular opacity projecting over the right lung base. Mediastinum: Mediastinal contours appear normal. Heart size is normal. Bones and chest wall: No acute osseous abnormality is identified. IMPRESSION: 1. Diffuse hazy bibasilar pulmonary opacities likely representing atelectasis or mild pulmonary edema, with aspiration or pneumonia thought less likely. 2. 1.0 cm rounded nodular opacity projecting over the right lung base is favored to represent a nipple shadow, with a true pulmonary nodule thought less likely. Consider repeat chest radiographs with nipple markers if there is continued clinical concern. Dictated by: Aidan Milian M.D. on 01/02/2019 at 14:44 Approved by: Aidan Milian M.D. on 01/02/2019 at 14:53 ECG Data Attestation: I personally reviewed and interpreted this ECG as follows: (Normal sinus rhythm, rate 75, normal axis) <Priya Wills DO - Last Filed: 01/05/19 07:48> Lab Data Attestation: I reviewed the patient's lab results. Lab Results 01/02/19 01/02/19 01/02/19 Range/Units 14:40 14:40 14:40 WBC 3.9 L (4.5-11.0) X10^3/uL RBC 4.18 (4.0-5.2) X10^6/uL Hgb 13.1 (12.0-16.0) g/dL Hct 38.7 (36-46) % MCV 92.7 (80-100) fL MCH 31.4 (26-34) PG MCHC 33.9 (30-36) % RDW 14.7 (11.6-14.8) % Plt Count 211 (150-400) X10^3/uL Neut % (Auto) Not Reportable Lymph % (Auto) Not Reportable [place] % (Auto) Not Reportable Eos % (Auto) Not Reportable Baso % (Auto) Not Reportable Lymph # (Auto) Not Reportable [place] # (Auto) Not Reportable Baso # (Auto) Not Reportable Total Counted 100 Seg Neutrophils % 20.0 L (38-70) % Band Neutrophils % 1.0 L (3-7) % Lymphocytes % (Manual) 63.0 H (25-45) % Atypical Lymphs % 8.0 H ( - 0) % Monocytes % (Manual) 7.0 (2-11) % Eosinophils % (Manual) 1.0 L (2-4) % Neutrophils # (Manual) 819 L (5969-2106) /uL RBC Morphology Normal morphology Smear Path Review Sodium 137 (137-145) mmol/L Potassium 3.5 (3.4-5.1) mmol/L Chloride 100 (98-107) mmol/L Carbon Dioxide 28 (22-32) mmol/L BUN 16 (7-17) mg/dL Creatinine 0.80 (0.52-1.04) mg/dL Estimated GFR > 60.0 (>60) mL/min BUN/Creatinine Ratio 20.0 (6-22) Glucose 84 (80-110) mg/dL Calcium 9.0 (8.4-10.2) mg/dL Magnesium 1.5 L (1.6-2.3) mg/dL Total Bilirubin 0.4 (0.2-1.3) mg/dL AST 30 (14-36) IU/L ALT 24 (9-52) IU/L Alkaline Phosphatase 84 (38-126) U/L Total Creatine Kinase 110 (30-135) U/L CK-MB (CK-2) 1.58 (<2.37) ng/mL CK-MB (CK-2) Rel Index 1.4 L (1.5-5.0) % Troponin I < 0.012 (0.01-0.034) ng/mL Total Protein 7.6 (6.3-8.2) g/dL Albumin 4.4 (3.5-5.0) g/dL Globulin 3.2 (1.7-4.1) g/dL Albumin/Globulin Ratio 1.4 (1.0-2.8) Lipase 105 (23-300) U/L ECG Data Attestation: I personally reviewed and interpreted this ECG as follows: Prior ECG tracings: available for review Interpretation: Normal sinus rhythm rate [address] changes or T-wave inversions appear interval 176 QTC 438 Discharge Plan Departure Patient Disposition: Home Clinical Impression: Palpitations Discharge Date/Time: 01/02/19 16:20 Interventions: ED Discharge Assessment Last Done: 01/02/19 16:19 Instructions: DI for Arrhythmias, DI for Palpitations Activity Restrictions/Additional Instructions: As we talked about, please return to the closest ED right away if you have acutely worsening symptoms again. Otherwise, please start 1 baby aspirin (81 mg) daily every day in case you are having intermittent episodes of atrial fibrillation/flutter again. On the EKG today, your heart rhythm was normal, but you did have that previously when you were here, and in some people this happened on and off just like your SVT has in the past. The aspirin can help to reduce risk of stroke related to that rhythm if you do have it, so it makes sense to take it until you follow up with your doctor in [place] and determine what to do next for workup. You may need to have another heart monitor done again. Please see your PCP for follow up this week Prescriptions: No Action valacyclovir 1 gram Tablet 1,000 mg PO DAILY RF: 0 Referrals: Manish Mac [Other] <Priya Wills DO - Last Filed: 01/05/19 07:48> Cosign ED Attending Kirbyature Attestation: I was immediately available in the department for consultation. Documentation has been reviewed. I agree with assessment and plan.
[2019-01-02 15:12] LABS: Magnesium 1.5 mg/dL (1.6-2.3)
[2019-01-02 15:17] LABS: Alanine Aminotransferase 24 IU/L (9-52); Albumin 4.4 g/dL (3.5-5.0); Albumin Globulin Ratio 1.4 (1.0-2.8); Alkaline Phosphatase 84 U/L (38-126); Aspartate Aminotransferase 30 IU/L (14-36); Bilirubin Total 0.4 mg/dL (0.2-1.3); Blood Urea Nitrogen 16 mg/dL (7-17); Carbon Dioxide 28 mmol/L (22-32); Chloride 100 mmol/L (98-107); Creatine Kinase 110 U/L (30-135); Estimated Glomerular Filt Rate > 60.0 mL/min (>60); Globulin 3.2 g/dL (1.7-4.1); Glucose 84 mg/dL (80-110); HEMOLYSIS < 15 (0-50); Lipase 105 U/L (23-300); Potassium 3.5 mmol/L (3.4-5.1); Sodium 137 mmol/L (137-145); Total Protein 7.6 g/dL (6.3-8.2)
[2019-01-02 15:27] LABS: Troponin I < 0.012 ng/mL (0.01-0.034)
[2019-01-02 15:30] LABS: Neutrophils Absolute Manual 819 /uL (3000-5900); RBC Morphology Normal Morphology; Total Cells Counted 100
[2019-01-02 15:32] LABS: CKMB % Relative Index 1.4 % (1.5-5.0); Creatine Kinase MB 1.58 ng/mL (<2.37)
[2019-01-02 16:08] VITALS: BP 131/69; PULSE 71; RESP 15; O2SAT 99
[2019-01-02 16:17] VITALS: BP 141/72; PULSE 57; RESP 16; O2SAT 100
== END 2019-01-02 16:20 | disposition home or self-care (01) ==
PROVIDERS: Emergency Medicine; Emergency Provider Internal Medicine
DX: R00.2 Palpitations (principal); R07.89 Other chest pain; R42 Dizziness and giddiness; Z86.79 Personal history of other diseases of the circulatory system
CPT/HCPCS: 36591; 71045; 80053; 82550; 82553; 83690; 83735; 84484; 85025; 93005; 96360; 99284; 99285

== ENCOUNTER → 2019-11-01 11:36 | Outpatient (CLI) | payer OTHER, SELFPAY ==
--- NOTE | 2019-11-01 | DI.MG.S_ITS ---
BILATERAL DIGITAL SCREENING MAMMOGRAM 3D/2D WITH CAD WITH AUGMENTATION: 11/01/2019 CLINICAL: Routine screening. Family history of breast cancer. Comparison is made to exams dated: 10/11/2017 mammogram, 08/29/2015 mammogram, and 07/04/2013 mammogram - [facility]. There are scattered fibroglandular elements in both breasts. Current study was also evaluated with a Computer Aided Detection (CAD) system. Bilateral breast implants are stable. No significant masses, calcifications, or other findings are seen in either breast. There has been no significant interval change. IMPRESSION: NEGATIVE There is no mammographic evidence of malignancy. A 1 year screening mammogram is recommended. This exam was interpreted at Station ID: [id number]. NOTE: For mammograms, a report in lay terms will be sent to the patient. Approximately 15% of breast malignancies will not be visualized mammographically. In the management of a palpable breast mass, a negative mammogram must not discourage biopsy of a clinically suspicious lesion. Electronically Signed By: Chhaya bliss/aretha:11/01/2019 16:33:19 letter sent: Normal Exam ACR BI-RADS Category 1: Negative [id number]
== END ==
PROVIDERS: Visit Provider Family Medicine
DX: Z12.31 Encounter for screening mammogram for malignant neoplasm of breast (principal); Z80.3 Family history of malignant neoplasm of breast
CPT/HCPCS: 77063; 77067

== ENCOUNTER → 2020-10-03 14:54 | Outpatient (CLI) | payer MEDICARE, SELFPAY ==
[2020-10-03] MEDS: COVID-19 VACC #1, MRNA(MOD) 100 MCG/0.5 ML VIAL IM (14:59)
== END ==
PROVIDERS: Visit Provider Internal Medicine
DX: Z23 Encounter for immunization (principal)
CPT/HCPCS: 0011A; 91301

== ENCOUNTER → 2020-10-31 15:01 | Outpatient (CLI) | payer MEDICARE, SELFPAY ==
[2020-10-31] MEDS: COVID-19 VACC #2, MRNA(MOD) 100 MCG/0.5 ML VIAL IM (15:05)
== END ==
PROVIDERS: Visit Provider Internal Medicine
DX: Z23 Encounter for immunization (principal)
CPT/HCPCS: 0012A; 91301

== ENCOUNTER 2021-11-10 17:20 | Emergency (ER) | payer OTHER, SELFPAY ==
[2021-11-10 17:36] VITALS: BP 150/71; PULSE 78; RESP 16; TEMP 36.3; O2SAT 97; BMI 24.4
--- NOTE | 2021-11-10 17:41 | DI.RAD.S_ITS ---
PROCEDURE: XR CHEST 1V INDICATIONS: Chest pain TECHNIQUE: One view of the chest was acquired. COMPARISON: [facility], CR, XR CHEST 1V, 01/02/2019, 14:36. FINDINGS: Surgical changes and devices: None. Lungs and pleura: Lungs are clear. No pleural effusions or pneumothorax. Mediastinum: Mediastinal contours appear normal. Heart size is normal. Bones and chest wall: No suspicious bony lesions. Overlying soft tissues appear unremarkable. IMPRESSION: No acute cardiopulmonary process demonstrated radiographically. Dictated by: Jalil Townsend M.D. on 11/10/2021 at 18:33 Approved by: Jalil Townsend M.D. on 11/10/2021 at 18:45
[2021-11-10 19:11] LABS: Add Manual Diff / Slide Review NO; Basophils Absolute Auto 0 /uL (0-100); Basophils Percent Auto 0.5 % (0-2); Eosinophils Absolute Auto 100 /uL (0-450); Eosinophils Percent Auto 1.3 % (2-4); Hemoglobin 13.1 g/dL (12.0-16.0); Lymphocytes Absolute Auto 2300 /uL (1100-4500); Lymphocytes Percent Auto 53.9 % (25-40); Mean Corpuscular HGB Conc 32.7 % (30-36); Mean Corpuscular Hemoglobin 29.5 PG (26-34); Mean Corpuscular Volume 90.2 fL (80-100); Monocytes Absolute Auto 500 /uL (0-900); Monocytes Percent Auto 10.7 % (3-14); Neutrophils Absolute Auto 1400 /uL (1500-7000); Neutrophils Percent Auto 33.6 % (50-75); Platelet Count 244 X10^3/uL (150-400); Red Blood Cell Count 4.44 X10^6/uL (4.0-5.2); Red Cell Distribution Width 13.8 % (11.6-14.8); White Blood Cell Count 4.3 X10^3/uL (4.5-11.0)
[2021-11-10 19:18] LABS: INR 1.3 (0.9-1.3); Prothrombin Time 14.1 SECONDS (10.1-12.7)
[2021-11-10 19:20] LABS: PTT Partial Thromboplastin Tim 55 SECONDS (26.4-36.2)
[2021-11-10 19:22] LABS: Alanine Aminotransferase 17 IU/L (<35); Albumin 4.3 g/dL (3.5-5.0); Albumin Globulin Ratio 1.1 (1.0-2.8); Alkaline Phosphatase 69 U/L (38-126); Aspartate Aminotransferase 26 IU/L (14-36); BUN Creatinine Ratio 26.5 (6-22); Bilirubin Total 0.4 mg/dL (0.2-1.3); Blood Urea Nitrogen 22 mg/dL (7-17); Calcium 9.4 mg/dL (8.4-10.2); Carbon Dioxide 34 mmol/L (22-32); Chloride 103 mmol/L (98-107); Creatine Kinase 78 U/L (30-135); Estimated Glomerular Filt Rate > 60.0 mL/min (>60); Globulin 3.8 g/dL (1.7-4.1); Glucose 101 mg/dL (80-110); HEMOLYSIS < 15 (0-50); Lipase 126 U/L (23-300); Magnesium 2.3 mg/dL (1.6-2.3); Potassium 4.2 mmol/L (3.4-5.1); Sodium 139 mmol/L (137-145); Total Protein 8.1 g/dL (6.3-8.2)
[2021-11-10 19:33] LABS: Troponin I < 0.012 ng/mL (0.01-0.034)
[2021-11-10 21:15] VITALS: BP 146/69; PULSE 56; RESP 15; O2SAT 98
--- NOTE | 2021-11-10 21:35 | ED.ARRPALP ---
HPI - Arrhythmia/Palpitations General Chief Complaint: Arrhythmia/Palpitations Stated Complaint: AFIB Time Seen by Provider: 11/10/21 21:13 Source: patient Mode of arrival: Ambulatory Limitations: no limitations History of Present Illness HPI narrative: 71-year-old female. Has a history of atrial fibrillation. She is on anticoagulation. She also takes metoprolol. She has had issues with AFib in the past but most of the time they only last several minutes and then her symptoms resolved. Earlier today she states that she felt like she went into AFib. Was not having chest pain. No shortness of breath. Was feeling palpitations. No lightheadedness. She has taken all of her medications as directed. Symptoms lasted for approximately 10 hours. She contacted her caustic plant worker who advised she come to the emergency department for further evaluation. Soon after she contact the caustic plant worker her symptoms resolved. She contacted them back in the still advised that she come to the ER for further evaluation. Related Data Home Medications Medication Instructions Recorded Confirmed valacyclovir 1 gram tablet 1,000 mg PO DAILY 01/02/19 Allergies Allergy/AdvReac Type Severity Reaction Status Date / Time diazepam [From VALIUM] Allergy Unknown Verified 01/02/19 14:30 morphine [MORPHINE] Allergy Unknown Verified 01/02/19 14:30 Sulfa (Sulfonamide Allergy Unknown Verified 01/02/19 14:30 Antibiotics) [SULFA (SULFONAMIDE ANTIBIOTICS)] Review of Systems Constitutional Constitutional: Reports system reviewed and no additional complaints, except as documented Cardiovascular Cardiovascular: Reports as per HPI and Reports system reviewed and no additional complaints, except as documented Respiratory Respiratory: Reports system reviewed and no additional complaints, except as documented Gastrointestinal Gastrointestinal: Reports system reviewed and no additional complaints, except as documented Integumentary/Breasts Skin/Breast: Reports system reviewed and no additional complaints, except as documented Neurologic Neurologic: Reports system reviewed and no additional complaints, except as documented Hematologic/Lymphatic On Anticoagulants: No Patient History Medical History Atrial flutter History of PSVT (paroxysmal supraventricular tachycardia) Surgical History (Updated 01/02/19 @ 20:03 by Etelvina Ayoub PA-C) No history of previous surgery Social History Smoking Status: Never smoker Smoking Status: Never smoker alcohol intake frequency: holidays/special occasions only Exam Initial Vital Signs Initial Vital Signs: Vital Signs Temperature 97.4 F L 11/10/21 17:36 Pulse Rate 78 11/10/21 17:36 Respiratory Rate 16 11/10/21 17:36 Blood Pressure 150/71 H 11/10/21 17:36 Pulse Oximetry 97 11/10/21 17:36 HENMT Head: normal to inspection and normocephalic Resp Effort & Inspection: normal respiratory effort Auscultation: clear to auscultation bilaterally Cardio Rate: regular rate Rhythm: regular rhythm Skin General: no rashes or lesions noted Neuro General: patient alert, patient awake, patient oriented x3 and moves all extremities Extrem General: normal to inspection and capillary refill normal Course Orders Ordered: ED Orders 11/10/21 17:41 XR chest 1V Stat EKG-12 Lead Stat 11/10/21 19:00 Complete Blood Count AUTO DIFF Stat Comprehensive Metabolic Panel Stat Lipase Stat Magnesium Stat Partial Thromboplastin Time Stat Prothrombin Time INR Stat Troponin & CK Cardiac Panel Stat Vital Signs Vital signs: Vital Signs - 8 hr 11/10/21 17:36 11/10/21 21:15 Temperature 97.4 F L Pulse Rate 78 56 L Respiratory Rate 16 15 Blood Pressure 150/71 H 146/69 H Pulse Oximetry 97 98 MDM - Arrhythmia/Palpitations Lab Data Attestation: I reviewed the patient's lab results. Result diagrams: 11/10/21 19:00 11/10/21 19:00 Labs: Lab Results 11/10/21 11/10/21 11/10/21 Range/Units 19:00 19:00 19:00 WBC 4.3 L (4.5-11.0) X10^3/uL RBC 4.44 (4.0-5.2) X10^6/uL Hgb 13.1 (12.0-16.0) g/dL Hct 40.0 (36-46) % MCV 90.2 (80-100) fL MCH 29.5 (26-34) PG MCHC 32.7 (30-36) % RDW 13.8 (11.6-14.8) % Plt Count 244 (150-400) X10^3/uL Neut % (Auto) 33.6 L (50-75) % Lymph % (Auto) 53.9 H (25-40) % [place] % (Auto) 10.7 (3-14) % Eos % (Auto) 1.3 L (2-4) % Baso % (Auto) 0.5 (0-2) % Neut # (Auto) 1400 L (4514-0699) /uL Lymph # (Auto) 2300 (3799-4437) /uL [place] # (Auto) 500 (0-900) /uL Eos # (Auto) 100 (0-450) /uL Baso # (Auto) 0 (0-100) /uL PT 14.1 H (10.1-12.7) SECONDS INR 1.3 (0.9-1.3) APTT 55 H D (26.4-36.2) SECONDS Sodium 139 (137-145) mmol/L Potassium 4.2 (3.4-5.1) mmol/L Chloride 103 (98-107) mmol/L Carbon Dioxide 34 H (22-32) mmol/L BUN 22 H (7-17) mg/dL Creatinine 0.83 (0.52-1.04) mg/dL Estimated GFR > 60.0 (>60) mL/min BUN/Creatinine Ratio 26.5 H (6-22) Glucose 101 (80-110) mg/dL Calcium 9.4 (8.4-10.2) mg/dL Magnesium 2.3 (1.6-2.3) mg/dL Total Bilirubin 0.4 (0.2-1.3) mg/dL AST 26 (14-36) IU/L ALT 17 (<35) IU/L Alkaline Phosphatase 69 (38-126) U/L Total Creatine Kinase 78 (30-135) U/L CK-MB (CK-2) TNP CK-MB (CK-2) Rel Index TNP Troponin I < 0.012 (0.01-0.034) ng/mL Total Protein 8.1 (6.3-8.2) g/dL Albumin 4.3 (3.5-5.0) g/dL Globulin 3.8 (1.7-4.1) g/dL Albumin/Globulin Ratio 1.1 (1.0-2.8) Lipase 126 (23-300) U/L Imaging Data Chest x-ray: Radiologist's Impresson: [address] [address] XRay Report Signed Patient: Jinny Saunders MR#: [id number] : 1950 Acct:[id number] Age/Sex: 71 / F Date of Service: 11/10/21 Loc: ED Accession Number: [id number] ?? Procedure: XR chest 1V Ordering Provider: Tony Sadler MD PROCEDURE:? XR CHEST 1V ? INDICATIONS:? Chest pain ? TECHNIQUE:? One view of the chest was acquired.? ? COMPARISON:? [facility], CR, XR CHEST 1V, 01/02/2019, 14:36. ? FINDINGS:? ? Surgical changes and devices:? None.? ? Lungs and pleura:? Lungs are clear.? No pleural effusions or pneumothorax.? ? Mediastinum:? Mediastinal contours appear normal.? Heart size is normal.? ? Bones and chest wall:? No suspicious bony lesions.? Overlying soft tissues appear unremarkable.? ? IMPRESSION:? No acute cardiopulmonary process demonstrated radiographically. ? ? Dictated by: Jalil Townsend M.D. on 11/10/2021 at 18:33 ? ? Approved by: Jalil Townsend M.D. on 11/10/2021 at 18:45? ECG Data Attestation: I personally reviewed and interpreted this ECG as follows: Interpretation: Sinus rhythm Ventricular rate is 62 First degree AV block pain or oval of 230 milliseconds Normal QRS Normal QTC No ST T wave changes MDM Narrative Medical decision making narrative: Patient is asymptomatic. She is in sinus rhythm currently. He is anticoagulated. Her labs unremarkable. Exam is unremarkable. Had a discussion with her regarding her symptoms. No further evaluation/treatment needed here in the emergency department. We will hold on any changes to her baseline medication. She was given return precautions. She expressed understanding and agreement. Discharge Plan Departure Patient Disposition: Home Clinical Impression: Atrial fibrillation Instructions: DI for Atrial Fibrillation Activity Restrictions/Additional Instructions: Continue to take all of your medications as directed. I do recommend you could talk with your caustic plant worker about a follow-up in any potential medication changes. Return to the emergency department for any new or worsening symptoms. Prescriptions: No Action valacyclovir 1 gram Tablet 1,000 mg PO DAILY 0RF
== END 2021-11-10 21:43 | disposition home or self-care (01) ==
PROVIDERS: Emergency Medicine; Emergency Provider Emergency Medicine
DX: I48.91 Unspecified atrial fibrillation (principal); Z79.899 Other long term (current) drug therapy; Z79.01 Long term (current) use of anticoagulants
CPT/HCPCS: 71045; 80053; 82550; 83690; 83735; 84484; 85025; 85610; 85730; 93005; 93010; 99283; 99284

== ENCOUNTER → 2022-03-19 09:36 | Outpatient (CLI) | payer OTHER, SELFPAY ==
--- NOTE | 2022-03-19 09:38 | DI.RAD.S_ITS ---
PROCEDURE: XR FOOT LT MIN 3V INDICATIONS: left foot injury TECHNIQUE: 3 views of the foot were acquired. COMPARISON: None. FINDINGS: Bones: There is a potential minimally displaced fracture involving the distal aspect of the proximal phalanx of the 4th toe. No additional fractures are detected. No dislocation can be seen. No suspicious lytic or blastic lesions are seen. Soft tissues: No tibiotalar joint effusion. Achilles tendon appears normal. IMPRESSION: Potential minimally displaced 4th toe fracture. Dictated by: Luis E Cardenas M.D. on 03/19/2022 at 8:51 Approved by: Luis E Cardenas M.D. on 03/19/2022 at 8:51
== END ==
PROVIDERS: PCP Specialist; Referring Provider Physician Assistant; Visit Provider Physician Assistant
DX: S99.922A Unspecified injury of left foot, initial encounter (principal)
CPT/HCPCS: 73630

== ENCOUNTER 2025-01-22 14:30 | Outpatient (RCR) | payer OTHER, SELFPAY ==
--- NOTE | 2024-12-13 17:03 | PT.OIE ---
Current Diagnoses Other specified enthesopathies of unspecified lower limb, excluding foot (12/13/24) Past Medical History (Last Reviewed 03/19/22 @ 10:23 by Margret Montilla PA-C) Atrial flutter History of PSVT (paroxysmal supraventricular tachycardia) Past Surgical History (Last Reviewed 03/19/22 @ 10:23 by Margret Montilla PA-C) No history of previous surgery Visit Care Team Role Provider Type Bee Guerra MD Referring Provider Non-Staff Specialty: Emergency Medicine Address: [address] [place] [address], [id number] Email: Jasen Mac MD Attending Provider Non-Staff Family Provider Primary Care Provider Specialty: Medical Address: [address] [place] [address], [address], [id number] Email: Physical Therapy Initial Evaluation PT-OP-A Visit Information Start: 12/13/24 13:03 Freq: Status: Active Protocol: Document 12/13/24 15:20 [facility] (Rec: 12/13/24 17:03 [facility] [id number]) Out-Patient Physical Therapy Visit Information Visit Information Visit Type Initial Evaluation Visit Start Time 13:21 Visit Stop Time 16:05 Visit Number 09/20 Number of SWEEPER DRIVER Visits 0 PT-OP-B Current Condition Start: 12/13/24 13:03 Freq: Status: Active Protocol: Document 12/13/24 15:20 [facility] (Rec: 12/13/24 17:03 [facility] [id number]) Current Condition History of Current Condition Onset Date 5 months ago (end of Jul) Current Complaints R ischial tuberosity History of Current Condition Pt reports it all started after she was rowing (4 people boat) and she had the bow position and after that she started to notice the pain. It was so bad that the pain was so severe. Walking up and down stairs was painful. Did some PT and it didn't do any good after 1 month. Bands bother her legs. She gets out and walks so she doesn't sit too long. She has been trying to be more aware in the boat. Xrays done but nothing significant seen. Found some OA in back Lower lumbar but they decided that wasn't that causing pain. Has neuropathy that is worse on LLE. Treatment Goals Patient/Caregiver Goals pain not to be so bad so can drive all the way to [place]/ [place] (1.5 hrs), wants to know what to in boat to avoid pain PT-OP-C Subjective Start: 12/13/24 13:03 Freq: Status: Active Protocol: Document 12/13/24 15:20 [facility] (Rec: 12/13/24 17:03 [facility] [id number]) OP-PT Pain Assessment Location R buttocks Pain Location Details R ischial tub Intensity 4 Scale Used Numeric (0 - 10) Frequency Intermittent Pain Aggravating Factors Sitting Other Pain Aggravating Factors driving >30 min, bow position, barely up stairs/hill, Other Pain Alleviating Factors moving PT-OP-D Balance Start: 12/13/24 13:03 Freq: Status: Active Protocol: Document 12/13/24 15:20 [facility] (Rec: 12/13/24 17:03 [facility] [id number]) Balance Tests Single Limb Standing Single Limb- Right >30 sec Single Limb- Left 15 sec PT-OP-F Manual Assessment Start: 12/13/24 13:03 Freq: Status: Active Protocol: Document 12/13/24 15:20 [facility] (Rec: 12/13/24 17:03 [facility] [id number]) Manual Assessments Joint Mobility Assessment Joint Mobility Assessment R iliac crest higher, R PSIS more post, equal greater trochanters, pelvis sheared R, thoracic rot R PT-OP-G Mobility & Gait Start: 12/13/24 13:03 Freq: Status: Active Protocol: Document 12/13/24 15:20 [facility] (Rec: 12/13/24 17:03 [facility] [id number]) OP Gait Assessment Comments Gait Comments dec stance time on RLE w/dec push off, harder landig on LLE PT-OP-J Posture/Palpation/Skin Start: 12/13/24 13:03 Freq: Status: Active Protocol: Document 12/13/24 15:20 [facility] (Rec: 12/13/24 17:03 [facility] [id number]) Posture Evaluation Razia Postural Classification System Razia Postural Classifications Posterior/Anterior Lumbar Protective Mechanism Left AP 1 Lumbar Protective Mechanism Right AP 1 Lumbar Protective Mechanism Left PA 0 Lumbar Protective Mechanism Right PA 1 PT-OP-L Special Tests Start: 12/13/24 13:03 Freq: Status: Active Protocol: Document 12/13/24 15:20 [facility] (Rec: 12/13/24 17:03 [facility] [id number]) Special Tests Hip Special Tests EMILY Test Results neg Comments FADER neg Slump Test Results neg SLR Test Results minor tightness about 80 deg SLR B PT-OP-M Strength Start: 12/13/24 13:03 Freq: Status: Active Protocol: Document 12/13/24 15:20 [facility] (Rec: 12/13/24 17:03 [facility] [id number]) Hip Strength Hip Manual Muscle Testing Right Flexion (L2) 3+ Fair+ Extension (S1) 5 Normal Abduction 4 Good Adduction 4 Good External Rotation 3+ Fair+ Internal Rotation 5 Normal Comments twinge in back w/flex Left Flexion (L2) 4- Good- Extension (S1) 5 Normal Abduction 4- Good- Adduction 4 Good External Rotation 3+ Fair+ Internal Rotation 5 Normal Knee Strength Knee Manual Muscle Testing Right Flexion (S2) 5 Normal Extension (L3) 5 Normal Left Flexion (S2) 5 Normal Extension (L3) 5 Normal Ankle/Foot Strength Ankle and Foot Manual Muscle Testing Right Dorsiflexion (L4) 5 Normal Plantarflexion (S1) 5 Normal Comments PF tested seated Left Dorsiflexion (L4) 5 Normal Plantarflexion (S1) 5 Normal PT-OP-Q Treatments Start: 12/13/24 13:03 Freq: Status: Active Protocol: Document 12/13/24 15:20 [facility] (Rec: 12/13/24 17:03 [facility] [id number]) Therapeutic Exercises Sitting Exercises stretch Sitting Exercise Name SL HS Side bilateral Reps/Minutes 30 sec ea Self-Care/Home Management Treatment Education Other Education 15 min: edu to pt re: pelvis alignment and may be related pt pain at ischial tub. Edu that no pain on MMT or w/SLR or ROM so less likely muscular . neg slump and SLR indicates less likely neural tension. PT-OP-T Assessment and Plan Start: 12/13/24 13:03 Freq: Status: Active Protocol: Document 12/13/24 15:20 [facility] (Rec: 12/13/24 17:03 [facility] [id number]) Physical Therapy Assessment Rehab Potential Rehabilitation Potential Good Evaluation Complexity Number of Personal Factors/Comorbidities 1-2 Number of Body Systems Impaired 4 or More Clinical Presentation at Evaluation Evolving Impairments Impairments Activity Tolerance,Balance, Functional Activities, Functional Mobility,Gait,Pain, Posture,ROM,Soft Tissue Mobility,Strength Goals strength Short Term Goal (STG) Pt will be indep w/HEP STG Duration 01/18 Mcfp Goal (LTG) Pt will score at least 4+/5 on all BLE MMT and at least 3/5 on LPM to show improved stability LTG Duration 02/05 activity Short Term Goal (STG) Pt will report no pain w/ ascending stairs STG Duration 01/07 Stud Driver Goal (LTG) Pt will report no pain w/ driving to [employer] ( >1.5 hr) LTG Duration 02/07 Assessment Summary Assessment Pt presents w/pain at R ischial tuberosity w/onset about 5 months ago when rowing in the bow position of the boat (abnormal position for her). She has pain w/this still and some pain w/ ascending stairs but most limiting is her ability to drive to [employer] w/o stopping as she does this frequently. 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 She would benefit from skilled PT to address these deficits. Physical Therapy Plan Frequency and Duration Frequency of Treatment 1-2x/wk Duration of treatment (weeks) 8 Plan of Care Start Date 12/13/24 Plan of Care End Date 02/07/25 Therapeutic Interventions Therapeutic Interventions Canalithic Repositioning, Coordination Training Modalities Cold Pack/Ice Massage,Electric Stimulation,Hot Packs, Infrared Therapy,Ultrasound Next Visit Focus/Plan Next Note Type Treatment Note Next Visit Plan gentle d/t osteoporosis, avoid bands d/t pain w/bands, pelvis mobs, STM to HS origin, review exercise, Add sit to stands, clamshells, bridges, s /l abd, RDL
--- NOTE | 2024-12-13 17:03 | PT.OPPOC ---
Physical, Occupational & Speech Therapy At [facility] Current Diagnoses Other specified enthesopathies of unspecified lower limb, excluding foot (12/13/24) Visit Care Team Role Provider Type Bee Guerra MD Referring Provider Non-Staff Specialty: Emergency Medicine Address: [address] [place] [address], [id number] Email: Jasen Mac MD Attending Provider Non-Staff Family Provider Primary Care Provider Specialty: Medical Address: [address] [place] [address], [address], [address] Email: Plan Of Care PT-OP-B Current Condition Start: 12/13/24 13:03 Freq: Status: Active Protocol: Document 12/13/24 15:20 [facility] (Rec: 12/13/24 17:03 [facility] [id number]) Current Condition History of Current Condition Onset Date 5 months ago (end of Jul) Current Complaints R ischial tuberosity History of Current Condition Pt reports it all started after she was rowing (4 people boat) and she had the bow position and after that she started to notice the pain. It was so bad that the pain was so severe. Walking up and down stairs was painful. Did some PT and it didn't do any good after 1 month. Bands bother her legs. She gets out and walks so she doesn't sit too long. She has been trying to be more aware in the boat. Xrays done but nothing significant seen. Found some OA in back Lower lumbar but they decided that wasn't that causing pain. Has neuropathy that is worse on LLE. Treatment Goals Patient/Caregiver Goals pain not to be so bad so can drive all the way to [place]/ [place] (1.5 hrs), wants to know what to in boat to avoid pain PT-OP-T Assessment and Plan Start: 12/13/24 13:03 Freq: Status: Active Protocol: Document 12/13/24 15:20 [facility] (Rec: 12/13/24 17:03 [facility] [id number]) Physical Therapy Assessment Rehab Potential Rehabilitation Potential Good Evaluation Complexity Number of Personal Factors/Comorbidities 1-2 Number of Body Systems Impaired 4 or More Clinical Presentation at Evaluation Evolving Impairments Impairments Activity Tolerance,Balance, Functional Activities, Functional Mobility,Gait,Pain, Posture,ROM,Soft Tissue Mobility,Strength Goals strength Short Term Goal (STG) Pt will be indep w/HEP STG Duration 01/18 Divisional Human Resources Director Goal (LTG) Pt will score at least 4+/5 on all BLE MMT and at least 3/5 on LPM to show improved stability LTG Duration 02/05 activity Short Term Goal (STG) Pt will report no pain w/ ascending stairs STG Duration 01/07 Penitentiary Goal (LTG) Pt will report no pain w/ driving to [employer] ( >1.5 hr) LTG Duration 02/07 Assessment Summary Assessment Pt presents w/pain at R ischial tuberosity w/onset about 5 months ago when rowing in the bow position of the boat (abnormal position for her). She has pain w/this still and some pain w/ ascending stairs but most limiting is her ability to drive to [employer] w/o stopping as she does this frequently. 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 She would benefit from skilled PT to address these deficits. Physical Therapy Plan Frequency and Duration Frequency of Treatment 1-2x/wk Duration of treatment (weeks) 8 Plan of Care Start Date 12/13/24 Plan of Care End Date 02/07/25 Therapeutic Interventions Therapeutic Interventions Canalithic Repositioning, Coordination Training Modalities Cold Pack/Ice Massage,Electric Stimulation,Hot Packs, Infrared Therapy,Ultrasound Next Visit Focus/Plan Next Note Type Treatment Note Next Visit Plan gentle d/t osteoporosis, avoid bands d/t pain w/bands, pelvis mobs, STM to HS origin, review exercise, Add sit to stands, clamshells, bridges, s /l abd, RDL Plan of Care Dates Plan of Care Start Date 12/13/24 Plan of Care End Date 02/07/25 Electronically Signed by: Romana Mercado, PT 12/13/24 7025 If you are in agreement with this Plan of Care, please return a signed and dated copy. I have reviewed this Plan of Care and certify that the skilled therapy services above are required to meet the patient?s needs. Physician Signature Date Printed Name and Credentials Clinical Instructor Signature Printed Name and Credentials
--- NOTE | 2024-12-15 13:12 | PT.OTN ---
Current Diagnoses Other specified enthesopathies of unspecified lower limb, excluding foot (12/15/24) Physical Therapy Treatment Note PT-OP-A Visit Information Start: 12/13/24 13:03 Freq: Status: Active Protocol: Document 12/15/24 11:36 [facility] (Rec: 12/15/24 13:12 [facility] Laptop) Out-Patient Physical Therapy Visit Information Visit Information Visit Type Treatment Note Visit Start Time 11:38 Visit Stop Time 12:25 Visit Number 2/ Number of DYE MAKER Visits 1 PT-OP-B Current Condition Start: 12/13/24 13:03 Freq: Status: Active Protocol: Document 12/13/24 15:20 [facility] (Rec: 12/13/24 17:03 [facility] [id number]) Current Condition History of Current Condition Onset Date 5 months ago (end of Jul) Current Complaints R ischial tuberosity History of Current Condition Pt reports it all started after she was rowing (4 people boat) and she had the bow position and after that she started to notice the pain. It was so bad that the pain was so severe. Walking up and down stairs was painful. Did some PT and it didn't do any good after 1 month. Bands bother her legs. She gets out and walks so she doesn't sit too long. She has been trying to be more aware in the boat. Xrays done but nothing significant seen. Found some OA in back Lower lumbar but they decided that wasn't that causing pain. Has neuropathy that is worse on LLE. Treatment Goals Patient/Caregiver Goals pain not to be so bad so can drive all the way to [place]/ [place] (1.5 hrs), wants to know what to in boat to avoid pain PT-OP-C Subjective Start: 12/13/24 13:03 Freq: Status: Active Protocol: Document 12/15/24 11:36 [facility] (Rec: 12/15/24 13:12 [facility] Laptop) OP-PT Subjective Patient Comments Patient Comments Jinny reports she has been doing the seated hamstring stretch, but hasn't stretched yet today. Pain is worst when driving to [place] and she'll have to snout puller to walk around, and then it feels better after about 200 steps. If it's raining she pulls over and lifts her hips up and moves them side to side to try to get relief. She reports she's on blood thinners. She had PT prior which was focused on her Piriformis muscle. She will email the pictures she took of rowing in Position 2 and 4, 4 is where she think she caused the hip pain starting about 5 months ago. PT-OP-D Balance Start: 12/13/24 13:03 Freq: Status: Active Protocol: Document 12/13/24 15:20 [facility] (Rec: 12/13/24 17:03 [facility] [id number]) Balance Tests Single Limb Standing Single Limb- Right >30 sec Single Limb- Left 15 sec PT-OP-F Manual Assessment Start: 12/13/24 13:03 Freq: Status: Active Protocol: Document 12/13/24 15:20 [facility] (Rec: 12/13/24 17:[id number] Manual Assessments Joint Mobility Assessment Joint Mobility Assessment R iliac crest higher, R PSIS more post, equal greater trochanters, pelvis sheared R, thoracic rot R PT-OP-G Mobility & Gait Start: 12/13/24 13:03 Freq: Status: Active Protocol: Document 12/13/24 15:20 [facility] (Rec: 12/13/24 17:03 [facility] [id number]) OP Gait Assessment Comments Gait Comments dec stance time on RLE w/dec push off, harder landig on LLE PT-OP-J Posture/Palpation/Skin Start: 12/13/24 13:03 Freq: Status: Active Protocol: Document 12/13/24 15:20 [facility] (Rec: 12/13/24 17:03 [facility] [id number]) Posture Evaluation Razia Postural Classification System Razia Postural Classifications Posterior/Anterior Lumbar Protective Mechanism Left AP 1 Lumbar Protective Mechanism Right AP 1 Lumbar Protective Mechanism Left PA 0 Lumbar Protective Mechanism Right PA 1 PT-OP-L Special Tests Start: 12/13/24 13:03 Freq: Status: Active Protocol: Document 12/13/24 15:20 [facility] (Rec: 12/13/24 17:03 [facility] [id number]) Special Tests Hip Special Tests EMIYL Test Results neg Comments FADER neg Slump Test Results neg SLR Test Results minor tightness about 80 deg SLR B PT-OP-M Strength Start: 12/13/24 13:03 Freq: Status: Active Protocol: Document 12/13/24 15:20 [facility] (Rec: 12/13/24 17:03 [facility] [id number]) Hip Strength Hip Manual Muscle Testing Right Flexion (L2) 3+ Fair+ Extension (S1) 5 Normal Abduction 4 Good Adduction 4 Good External Rotation 3+ Fair+ Internal Rotation 5 Normal Comments twinge in back w/flex Left Flexion (L2) 4- Good- Extension (S1) 5 Normal Abduction 4- Good- Adduction 4 Good External Rotation 3+ Fair+ Internal Rotation 5 Normal Knee Strength Knee Manual Muscle Testing Right Flexion (S2) 5 Normal Extension (L3) 5 Normal Left Flexion (S2) 5 Normal Extension (L3) 5 Normal Ankle/Foot Strength Ankle and Foot Manual Muscle Testing Right Dorsiflexion (L4) 5 Normal Plantarflexion (S1) 5 Normal Comments PF tested seated Left Dorsiflexion (L4) 5 Normal Plantarflexion (S1) 5 Normal PT-OP-Q Treatments Start: 12/13/24 13:03 Freq: Status: Active Protocol: Document 12/15/24 11:36 [facility] (Rec: 12/15/24 13:12 [facility] Laptop) Therapeutic Exercises Supine Exercises bridging Supine Exercise Name gluteal and breath focus - added to HEP Side bilateral Resistance Lvl 3 Tb stretched around knees Reps/Minutes x10 Comments R HS cramp resolves w/ manual stretch and cues for feet closer to body. hip abduction Supine Exercise Name clamshell - added to HEP Side bilateral Resistance Lvl 1>Lvl 3 Tb stretched around knees Equipment Used trialed folded towel and pillowcases for cushion Reps/Minutes x10 ea Comments cued LE alignment and eccentric control. Piriformis stretch Supine Exercise Name Figure 4 - next session Comments verbal review from past HEP. Sidelying Exercises hip abduction Sidelying Exercise Name clamshells - added to HEP Side bilateral Resistance Lvl 3 Tb stretched around knees Reps/Minutes x10 Comments vc for eccentric control and breath Sitting Exercises stretch Sitting Exercise Name SL HS Side bilateral Reps/Minutes 60 sec ea Comments cues for form Therapeutic Activity Therapeutic Activity Sleeping ergonomics Name sidesleeping Reps/Minutes 4' Comments Pt sleeps on side R>L without LE supports, and does report increased hip stiffness in mornings. Pt encouraged to trial pillows for LE alignment between knees and ankles. Manual Therapy Treatment Consent Patient gave verbal consent for manual Yes treatment Joint Mobilizations R hip Joint 1. blocking at posterior iliac crest Direction caudal glide Body Position Prone Comments w/ FM 2. Sidelying R anterior rotation blocking at PSIS w/ FM PT-OP-T Assessment and Plan Start: 12/13/24 13:03 Freq: Status: Active Protocol: Document 12/15/24 11:36 [facility] (Rec: 12/15/24 13:12 [facility] Laptop) Physical Therapy Assessment Goals strength Short Term Goal (STG) Pt will be indep w/HEP 12/15/24: Issued HEP: seated HS stretch, resisted clamshells supine/sidelying, resisted bridging; Lvl 3 Tb and HO given. STG Duration 01/18 Half-Way Goal (LTG) Pt will score at least 4+/5 on all BLE MMT and at least 3/5 on LPM to show improved stability LTG Duration 6/2 activity Short Term Goal (STG) Pt will report no pain w/ ascending stairs STG Duration 5/ Half-Way Goal (LTG) Pt will report no pain w/ driving to [employer] ( >1.5 hr) LTG Duration 6/ Assessment Summary Assessment Treatment focus on manual therapy and LE strengthening and stretching. Edu to Jinny re: sleep positioning with pillow supports between lower extremities. She requires initial cueing for form with hamstring stretch. Pt has one instance of R hamstring cramping during resisted bridging which resolves w/ manual hamstring stretch and cueing for positioning feet closer to body. Successfully trialed resistance bands for use with HEP without pain when appropriate resistance is placed stretched over knees. Issued HEP: seated HS stretch, resisted clamshells supine/ sidelying, resisted bridging; Lvl 3 Tb and HO given. No pain reported end of session. Physical Therapy Plan Frequency and Duration Frequency of Treatment 1-2x/wk Duration of treatment (weeks) 8 Plan of Care Start Date 12/13/24 Plan of Care End Date 02/07/25 Therapeutic Interventions Therapeutic Interventions Canalithic Repositioning, Coordination Training Modalities Cold Pack/Ice Massage,Electric Stimulation,Hot Packs, Infrared Therapy,Ultrasound Next Visit Focus/Plan Next Note Type Treatment Note Next Visit Plan Review pictures of rowing positioning. Assess response to treatment and HEP. POC: gentle d/t osteoporosis, avoid bands d/t pain w/bands, pelvis mobs, STM to HS origin, review exercise, Add sit to stands, s/l abd, RDL
--- NOTE | 2024-12-21 15:00 | PT.OTN ---
Current Diagnoses Other specified enthesopathies of unspecified lower limb, excluding foot (12/21/24) Physical Therapy Treatment Note PT-OP-A Visit Information Start: 12/13/24 13:03 Freq: Status: Active Protocol: Document 12/21/24 13:52 NBM (Rec: 12/21/24 15:06 NBM Laptop) Out-Patient Physical Therapy Visit Information Visit Information Visit Type Treatment Note Visit Start Time 13:49 Visit Stop Time 14:40 Visit Number 3/15 Number of MARKETING SERVICES COORDINATOR Visits 2 PT-OP-B Current Condition Start: 12/13/24 13:03 Freq: Status: Active Protocol: Document 12/13/24 15:20 [facility] (Rec: 12/13/24 17:03 [facility] [id number]) Current Condition History of Current Condition Onset Date 5 months ago (end of Jul) Current Complaints R ischial tuberosity History of Current Condition Pt reports it all started after she was rowing (4 people boat) and she had the bow position and after that she started to notice the pain. It was so bad that the pain was so severe. Walking up and down stairs was painful. Did some PT and it didn't do any good after 1 month. Bands bother her legs. She gets out and walks so she doesn't sit too long. She has been trying to be more aware in the boat. Xrays done but nothing significant seen. Found some OA in back Lower lumbar but they decided that wasn't that causing pain. Has neuropathy that is worse on LLE. Treatment Goals Patient/Caregiver Goals pain not to be so bad so can drive all the way to [place]/ [place] (1.5 hrs), wants to know what to in boat to avoid pain PT-OP-C Subjective Start: 12/13/24 13:03 Freq: Status: Active Protocol: Document 12/21/24 13:52 NBM (Rec: 12/21/24 15:06 NBM Laptop) OP-PT Subjective Patient Comments Patient Comments Jinny reports her rowing team has increased from 1 hour to 1 .5 hours and rowing much harder. Her L hamstring was so sore after. She went to [place] two days ago and she was able to go one hour instead of half an hour before having to get out of car, and the pain wasn't as intense so she is very pleased. She brings her HEP and a different band that appears to be Lvl 2 orange latex free. PT-OP-D Balance Start: 12/13/24 13:03 Freq: Status: Active Protocol: Document 12/13/24 15:20 [facility] (Rec: 12/13/24 17:03 [facility] [id number]) Balance Tests Single Limb Standing Single Limb- Right >30 sec Single Limb- Left 15 sec PT-OP-F Manual Assessment Start: 12/13/24 13:03 Freq: Status: Active Protocol: Document 12/13/24 15:20 [facility] (Rec: 12/13/24 17:03 [facility] [id number]) Manual Assessments Joint Mobility Assessment Joint Mobility Assessment R iliac crest higher, R PSIS more post, equal greater trochanters, pelvis sheared R, thoracic rot R PT-OP-G Mobility & Gait Start: 12/13/24 13:03 Freq: Status: Active Protocol: Document 12/13/24 15:20 [facility] (Rec: 12/13/24 17:03 [facility] [id number]) OP Gait Assessment Comments Gait Comments dec stance time on RLE w/dec push off, harder landig on LLE PT-OP-J Posture/Palpation/Skin Start: 12/13/24 13:03 Freq: Status: Active Protocol: Document 12/13/24 15:20 [facility] (Rec: 12/13/24 17:03 [facility] [id number]) Posture Evaluation Razia Postural Classification System Razia Postural Classifications Posterior/Anterior Lumbar Protective Mechanism Left AP 1 Lumbar Protective Mechanism Right AP 1 Lumbar Protective Mechanism Left PA 0 Lumbar Protective Mechanism Right PA 1 PT-OP-L Special Tests Start: 12/13/24 13:03 Freq: Status: Active Protocol: Document 12/13/24 15:20 [facility] (Rec: 12/13/24 17:03 [facility] [id number]) Special Tests Hip Special Tests EMILY Test Results neg Comments FADER neg Slump Test Results neg SLR Test Results minor tightness about 80 deg SLR B PT-OP-M Strength Start: 12/13/24 13:03 Freq: Status: Active Protocol: Document 12/13/24 15:20 [facility] (Rec: 12/13/24 17:03 [facility] [id number]) Hip Strength Hip Manual Muscle Testing Right Flexion (L2) 3+ Fair+ Extension (S1) 5 Normal Abduction 4 Good Adduction 4 Good External Rotation 3+ Fair+ Internal Rotation 5 Normal Comments twinge in back w/flex Left Flexion (L2) 4- Good- Extension (S1) 5 Normal Abduction 4- Good- Adduction 4 Good External Rotation 3+ Fair+ Internal Rotation 5 Normal Knee Strength Knee Manual Muscle Testing Right Flexion (S2) 5 Normal Extension (L3) 5 Normal Left Flexion (S2) 5 Normal Extension (L3) 5 Normal Ankle/Foot Strength Ankle and Foot Manual Muscle Testing Right Dorsiflexion (L4) 5 Normal Plantarflexion (S1) 5 Normal Comments PF tested seated Left Dorsiflexion (L4) 5 Normal Plantarflexion (S1) 5 Normal PT-OP-Q Treatments Start: 12/13/24 13:03 Freq: Status: Active Protocol: Document 12/21/24 13:52 NBM (Rec: 12/21/24 15:06 NBM Laptop) Therapeutic Exercises Supine Exercises LTR Supine Exercise Name 1. with ball 2. wo Ball - added to HEP Side bilateral Equipment Used 65cm green therapy ball Reps/Minutes x15 ea hip abduction Supine Exercise Name clamshell - HEP review Side bilateral Resistance Lvl 3 Tb stretched around knees Reps/Minutes x10 ea Comments good pacing and breathwork Piriformis stretch Supine Exercise Name Figure 4 - next session Comments verbal review from past HEP. Sidelying Exercises reverse clamshell Sidelying Exercise Name w/ TrA and breath - added to HEP Side bilateral Reps/Minutes x10 ea Comments good pacing hip abduction Sidelying Exercise Name clamshells - HEP review Side bilateral Resistance Lvl 3 Tb stretched around knees Reps/Minutes x10 Comments tactile cues for pelvic compensation, vc TrA, breath Sitting Exercises stretch Sitting Exercise Name SL HS Side bilateral Reps/Minutes 60 sec ea Comments cues for form Therapeutic Activity Therapeutic Activity Sleeping ergonomics Name sidesleeping - verbal review Comments Pt starts with pillows between LEs but wakes up without them . PT-OP-T Assessment and Plan Start: 12/13/24 13:03 Freq: Status: Active Protocol: Document 12/21/24 13:52 NBM (Rec: 12/21/24 15:06 NBM Laptop) Physical Therapy Assessment Goals strength Short Term Goal (STG) Pt will be indep w/HEP 12/15/24: Issued HEP: seated HS stretch, resisted clamshells supine/sidelying, resisted bridging; Lvl 3 Tb and HO given. STG Duration 15 Scissors Grinder Goal (LTG) Pt will score at least 4+/5 on all BLE MMT and at least 3/5 on LPM to show improved stability LTG Duration 6/2 activity Short Term Goal (STG) Pt will report no pain w/ ascending stairs STG Duration 5/4 Scissors Grinder Goal (LTG) Pt will report no pain w/ driving to [place] ( >1.5 hr) LTG Duration 6/4 Assessment Summary Assessment Pt tolerates full session without pain. Added to HEP: sidelying reverse clamshell, seated Paloff punch and rotation on ball - HO given. Educated in pelvic mobilizations performed last visit using skeletal model and relationship to rowing positions. Physical Therapy Plan Frequency and Duration Frequency of Treatment 1-2x/wk Duration of treatment (weeks) 8 Plan of Care Start Date 12/13/24 Plan of Care End Date 02/07/25 Therapeutic Interventions Therapeutic Interventions Canalithic Repositioning, Coordination Training Modalities Cold Pack/Ice Massage,Electric Stimulation,Hot Packs, Infrared Therapy,Ultrasound Next Visit Focus/Plan Next Note Type Treatment Note Next Visit Plan Review pictures of rowing positioning. Assess response to treatment and HEP. POC: gentle d/t osteoporosis, avoid bands d/t pain w/bands, pelvis mobs, STM to HS origin, review exercise, Add sit to stands, s/l abd, RDL
--- NOTE | 2024-12-28 17:03 | PT.OTN ---
Current Diagnoses Other specified enthesopathies of unspecified lower limb, excluding foot (12/28/24) Physical Therapy Treatment Note PT-OP-A Visit Information Start: 12/13/24 13:03 Freq: Status: Active Protocol: Document 12/28/24 15:14 [facility] (Rec: 12/28/24 17:02 [facility] [id number]) Out-Patient Physical Therapy Visit Information Visit Information Visit Type Treatment Note Visit Start Time 15:18 Visit Stop Time 15:58 Visit Number 4 Number of BALANCE WHEEL HAND FILER Visits 0 PT-OP-B Current Condition Start: 12/13/24 13:03 Freq: Status: Active Protocol: Document 12/13/24 15:20 [facility] (Rec: 12/13/24 17:03 [facility] [id number]) Current Condition History of Current Condition Onset Date 5 months ago (end of Jul) Current Complaints R ischial tuberosity History of Current Condition Pt reports it all started after she was rowing (4 people boat) and she had the bow position and after that she started to notice the pain. It was so bad that the pain was so severe. Walking up and down stairs was painful. Did some PT and it didn't do any good after 1 month. Bands bother her legs. She gets out and walks so she doesn't sit too long. She has been trying to be more aware in the boat. Xrays done but nothing significant seen. Found some OA in back Lower lumbar but they decided that wasn't that causing pain. Has neuropathy that is worse on LLE. Treatment Goals Patient/Caregiver Goals pain not to be so bad so can drive all the way to [place]/ [place] (1.5 hrs), wants to know what to in boat to avoid pain PT-OP-C Subjective Start: 12/13/24 13:03 Freq: Status: Active Protocol: Document 12/28/24 15:14 [facility] (Rec: 12/28/24 17:02 [facility] [id number]) OP-PT Subjective Patient Comments Patient Comments Pt reports she rowed for 7 miles in position 3 then 2 and just felt stiff after but not inc pain. She had more pain w /drive to [place] PT-OP-D Balance Start: 12/13/24 13:03 Freq: Status: Active Protocol: Document 12/13/24 15:20 [facility] (Rec: 12/13/24 17:03 [facility] [id number]) Balance Tests Single Limb Standing Single Limb- Right >30 sec Single Limb- Left 15 sec PT-OP-F Manual Assessment Start: 12/13/24 13:03 Freq: Status: Active Protocol: Document 12/13/24 15:20 [facility] (Rec: 12/13/24 17:03 [facility] [id number]) Manual Assessments Joint Mobility Assessment Joint Mobility Assessment R iliac crest higher, R PSIS more post, equal greater trochanters, pelvis sheared R, thoracic rot R PT-OP-G Mobility & Gait Start: 12/13/24 13:03 Freq: Status: Active Protocol: Document 12/13/24 15:20 [facility] (Rec: 12/13/24 17:03 [facility] [id number]) OP Gait Assessment Comments Gait Comments dec stance time on RLE w/dec push off, harder landig on LLE PT-OP-J Posture/Palpation/Skin Start: 12/13/24 13:03 Freq: Status: Active Protocol: Document 12/13/24 15:20 [facility] (Rec: 12/13/24 17:03 [facility] [id number]) Posture Evaluation Razia Postural Classification System Razia Postural Classifications Posterior/Anterior Lumbar Protective Mechanism Left AP 1 Lumbar Protective Mechanism Right AP 1 Lumbar Protective Mechanism Left PA 0 Lumbar Protective Mechanism Right PA 1 PT-OP-L Special Tests Start: 12/13/24 13:03 Freq: Status: Active Protocol: Document 12/13/24 15:20 [facility] (Rec: 12/13/24 17:03 [facility] [id number]) Special Tests Hip Special Tests EMILY Test Results neg Comments FADER neg Slump Test Results neg SLR Test Results minor tightness about 80 deg SLR B PT-OP-M Strength Start: 12/13/24 13:03 Freq: Status: Active Protocol: Document 12/13/24 15:20 [facility] (Rec: 12/13/24 17:03 [facility] [id number]) Hip Strength Hip Manual Muscle Testing Right Flexion (L2) 3+ Fair+ Extension (S1) 5 Normal Abduction 4 Good Adduction 4 Good External Rotation 3+ Fair+ Internal Rotation 5 Normal Comments twinge in back w/flex Left Flexion (L2) 4- Good- Extension (S1) 5 Normal Abduction 4- Good- Adduction 4 Good External Rotation 3+ Fair+ Internal Rotation 5 Normal Knee Strength Knee Manual Muscle Testing Right Flexion (S2) 5 Normal Extension (L3) 5 Normal Left Flexion (S2) 5 Normal Extension (L3) 5 Normal Ankle/Foot Strength Ankle and Foot Manual Muscle Testing Right Dorsiflexion (L4) 5 Normal Plantarflexion (S1) 5 Normal Comments PF tested seated Left Dorsiflexion (L4) 5 Normal Plantarflexion (S1) 5 Normal PT-OP-Q Treatments Start: 12/13/24 13:03 Freq: Status: Active Protocol: Document 12/28/24 15:14 [facility] (Rec: 12/28/24 17:02 [facility] [id number]) Gym Equipment Therapeutic Ball seated Ball Size/Color 65 cm Body Position seated Reps/Duration 10 ea Comments 1. paloff press 2 [place] [employer] x10 2. rot trunk x10 B Therapeutic Exercises Supine Exercises LTR Supine Exercise Name no ball Side bilateral Reps/Minutes 10 Comments cues core and segmental rot bridging Supine Exercise Name SL Side bilateral Reps/Minutes 8 ea Comments cues segmental Sidelying Exercises reverse clamshell Sidelying Exercise Name review HEP Side bilateral Equipment Used L1 Reps/Minutes x10 ea Comments good pacing hip abduction Sidelying Exercise Name clamshells - HEP review Resistance Lvl 3 Tb stretched around knees Reps/Minutes 5 Comments min cues for no pelvic rot Manual Therapy Treatment Consent Patient gave verbal consent for manual Yes treatment Soft Tissue Mobilization hip Body Location proximal HS, piriformis Mobilization Type Sustained Pressure Intensity/Depth Moderate Body Position Prone Comments w/ER Joint Mobilizations sacrum Comments caudal w/ER coccyx Comments SB to L w/ER innominate Comments caudal R, ER R w/manual facilitation end range, ext R, L flex c/r R hip Comments hip on axis ER c/r PT-OP-T Assessment and Plan Start: 12/13/24 13:03 Freq: Status: Active Protocol: Document 12/28/24 15:14 [facility] (Rec: 12/28/24 17:02 [facility] [id number]) Physical Therapy Assessment Goals strength Short Term Goal (STG) Pt will be indep w/HEP 12/15/24: Issued HEP: seated HS stretch, resisted clamshells supine/sidelying, resisted bridging; Lvl 3 Tb and HO given. STG Duration 15 Correction Goal (LTG) Pt will score at least 4+/5 on all BLE MMT and at least 3/5 on LPM to show improved stability LTG Duration 6/2 activity Short Term Goal (STG) Pt will report no pain w/ ascending stairs STG Duration 5/4 Correction Goal (LTG) Pt will report no pain w/ driving to [employer] ( >1.5 hr) LTG Duration 6/4 Assessment Summary Assessment Pt did well with exercises and progressions. She required min cueing w/her current HEP and was able to advance. Pt reports feeling relief after session. Physical Therapy Plan Frequency and Duration Frequency of Treatment 1-2x/wk Duration of treatment (weeks) 8 Plan of Care Start Date 12/13/24 Plan of Care End Date 02/07/25 Next Visit Focus/Plan Next Note Type Treatment Note Next Visit Plan look at pt position in car and help her set up adjustments in car for improved positioning; pelvic mobilization, core stability, HS curls on ball, strengthening core/hip
--- NOTE | 2025-01-04 16:41 | PT.OTN ---
Current Diagnoses Other specified enthesopathies of unspecified lower limb, excluding foot (01/04/25) Physical Therapy Treatment Note PT-OP-A Visit Information Start: 12/13/24 13:03 Freq: Status: Active Protocol: Document 01/04/25 14:35 AB (Rec: 01/04/25 16:41 AB Laptop) Out-Patient Physical Therapy Visit Information Visit Information Visit Type Treatment Note Visit Start Time 14:35 Visit Stop Time 15:16 Visit Number 01/18 Number of IMPERSONATOR CHARACTER Visits 1 PT-OP-B Current Condition Start: 12/13/24 13:03 Freq: Status: Active Protocol: Document 12/13/24 15:20 [facility] (Rec: 12/13/24 17:03 [facility] [id number]) Current Condition History of Current Condition Onset Date 5 months ago (end of Jul) Current Complaints R ischial tuberosity History of Current Condition Pt reports it all started after she was rowing (4 people boat) and she had the bow position and after that she started to notice the pain. It was so bad that the pain was so severe. Walking up and down stairs was painful. Did some PT and it didn't do any good after 1 month. Bands bother her legs. She gets out and walks so she doesn't sit too long. She has been trying to be more aware in the boat. Xrays done but nothing significant seen. Found some OA in back Lower lumbar but they decided that wasn't that causing pain. Has neuropathy that is worse on LLE. Treatment Goals Patient/Caregiver Goals pain not to be so bad so can drive all the way to [place]/ [place] (1.5 hrs), wants to know what to in boat to avoid pain PT-OP-C Subjective Start: 12/13/24 13:03 Freq: Status: Active Protocol: Document 01/04/25 14:35 AB (Rec: 01/04/25 16:41 AB Laptop) OP-PT Subjective Patient Comments Patient Comments Patient reports she is extremely bad, she was placed in position 4, which she is too tall for this position when rowing. Patient reports she was very stiff this morning, difficulty with walking, rates pain 3/10 Pain/ stiffness, lower back not buttocks. PT-OP-D Balance Start: 12/13/24 13:03 Freq: Status: Active Protocol: Document 12/13/24 15:20 [facility] (Rec: 12/13/24 17:03 [facility] [id number]) Balance Tests Single Limb Standing Single Limb- Right >30 sec Single Limb- Left 15 sec PT-OP-F Manual Assessment Start: 12/13/24 13:03 Freq: Status: Active Protocol: Document 12/13/24 15:20 [facility] (Rec: 12/13/24 17:03 [facility] [id number]) Manual Assessments Joint Mobility Assessment Joint Mobility Assessment R iliac crest higher, R PSIS more post, equal greater trochanters, pelvis sheared R, thoracic rot R PT-OP-G Mobility & Gait Start: 12/13/24 13:03 Freq: Status: Active Protocol: Document 12/13/24 15:20 [facility] (Rec: 12/13/24 17:03 [facility] [id number]) OP Gait Assessment Comments Gait Comments dec stance time on RLE w/dec push off, harder landig on LLE PT-OP-J Posture/Palpation/Skin Start: 12/13/24 13:03 Freq: Status: Active Protocol: Document 12/13/24 15:20 [facility] (Rec: 12/13/24 17:03 [facility] [id number]) Posture Evaluation Razia Postural Classification System Razia Postural Classifications Posterior/Anterior Lumbar Protective Mechanism Left AP 1 Lumbar Protective Mechanism Right AP 1 Lumbar Protective Mechanism Left PA 0 Lumbar Protective Mechanism Right PA 1 PT-OP-L Special Tests Start: 12/13/24 13:03 Freq: Status: Active Protocol: Document 12/13/24 15:20 [facility] (Rec: 12/13/24 17:03 [facility] [id number]) Special Tests Hip Special Tests EMILY Test Results neg Comments FADER neg Slump Test Results neg SLR Test Results minor tightness about 80 deg SLR B PT-OP-M Strength Start: 12/13/24 13:03 Freq: Status: Active Protocol: Document 12/13/24 15:20 [facility] (Rec: 12/13/24 17:03 [facility] [id number]) Hip Strength Hip Manual Muscle Testing Right Flexion (L2) 3+ Fair+ Extension (S1) 5 Normal Abduction 4 Good Adduction 4 Good External Rotation 3+ Fair+ Internal Rotation 5 Normal Comments twinge in back w/flex Left Flexion (L2) 4- Good- Extension (S1) 5 Normal Abduction 4- Good- Adduction 4 Good External Rotation 3+ Fair+ Internal Rotation 5 Normal Knee Strength Knee Manual Muscle Testing Right Flexion (S2) 5 Normal Extension (L3) 5 Normal Left Flexion (S2) 5 Normal Extension (L3) 5 Normal Ankle/Foot Strength Ankle and Foot Manual Muscle Testing Right Dorsiflexion (L4) 5 Normal Plantarflexion (S1) 5 Normal Comments PF tested seated Left Dorsiflexion (L4) 5 Normal Plantarflexion (S1) 5 Normal PT-OP-Q Treatments Start: 12/13/24 13:03 Freq: Status: Active Protocol: Document 01/04/25 14:35 AB (Rec: 01/04/25 16:41 AB Laptop) Therapeutic Exercises Supine Exercises Modified Bryant stretch Reps/Minutes 40 sec L 60 sec R LE Comments Limited by right LE cramping Piriformis stretch Supine Exercise Name piriformis stretch Reps/Minutes 60 sec each LE X 1 Comments towel roll for gapping R, Verbal cues Sitting Exercises core warm up Sitting Exercise Name shoulder flexion and seated trunk rotation Reps/Minutes 5 X 5 each Comments verbal and visual cues Therapeutic Activity Therapeutic Activity car positioning Name Patient ed increased hip angle , and LE's very close to steering wheel Reps/Minutes Partner's truck 9 min Comments pedals ie increased hip and knee flexion when seated at rest. Photo taken on patient's phone for her benefit. Patient ed seat should be higher, which requires steering wheel higher, and seat further back. With seat further back and patient pressing peddles the low back remains on the back rest ( tactile cues to make patient aware back/pelvis should not shift foward) Manual Therapy Treatment Consent Patient gave verbal consent for manual Yes treatment Soft Tissue Mobilization hip Body Location illiopsoas, glute/piriformis bilateral Mobilization Type Cross-Friction,Rolling Intensity/Depth Moderate Body Position Sidelying Comments and hooklying Manual Techniques MET for R AI L PI and pubic shotgun Reps/Duration 6 X 6 sec each PT-OP-T Assessment and Plan Start: 12/13/24 13:03 Freq: Status: Active Protocol: Document 01/04/25 14:35 AB (Rec: 01/04/25 16:41 AB Laptop) Physical Therapy Assessment Goals strength Short Term Goal (STG) Pt will be indep w/HEP 12/15/24: Issued HEP: seated HS stretch, resisted clamshells supine/sidelying, resisted bridging; Lvl 3 Tb and HO given. STG Duration 01/18 Longterm Goal (LTG) Pt will score at least 4+/5 on all BLE MMT and at least 3/5 on LPM to show improved stability LTG Duration 6/2 activity Short Term Goal (STG) Pt will report no pain w/ ascending stairs STG Duration / Longterm Goal (LTG) Pt will report no pain w/ driving to [employer] ( >1.5 hr) LTG Duration 6/ Assessment Summary Assessment Patient reports feeling much less stiff end of session, rates pain 1/10 end of session . Physical Therapy Plan Frequency and Duration Frequency of Treatment 1-2x/wk Duration of treatment (weeks) 8 Plan of Care Start Date 12/13/24 Plan of Care End Date 02/07/25 Next Visit Focus/Plan Next Note Type Treatment Note Next Visit Plan look at pt position in car and help her set up adjustments in car for improved positioning; pelvic mobilization, core stability, HS curls on ball, strengthening core/hip
--- NOTE | 2025-01-09 17:35 | PT.OTN ---
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 It was so bad that the pain was so severe. Walking up and down stairs was painful. Did some PT and it didn't do any good after 1 month. Bands bother her legs. She gets out and walks so she doesn't sit too long. She has been trying to be more aware in the boat. Xrays done but nothing significant seen. Found some OA in back Lower lumbar but they decided that wasn't that causing pain. Has neuropathy that is worse on LLE. Treatment Goals Patient/Caregiver Goals pain not to be so bad so can drive all the way to [place]/ [place] (1.5 hrs), wants to know what to in boat to avoid pain PT-OP-C Subjective Start: 12/13/24 13:03 Freq: Status: Active Protocol: Document 01/09/25 17:12 NBM (Rec: 01/09/25 17:32 NBM Laptop) OP-PT Subjective Patient Comments Patient Comments Jinny reports 0/10 pain and was able to drive to [place] for two hour-opera and back without needing to [employer], but did have R-sided hip discomfort. She has since adjusted her sitting position in car per last PT session and is excited to try next drive. She had a 5 hour rowing race Wednesday and a 1.5 hour practice Wednesday and awoke with some low back stiffness this morning. The single leg bridging feels like too much, and some days she didn't do any of the exercises, but she has since modified the bridges to x5 double leg then x5 ea single leg. Twice a day is too much. PT-OP-D Balance Start: 12/13/24 13:03 Freq: Status: Active Protocol: Document 12/13/24 15:20 [facility] (Rec: 12/13/24 17:03 [facility] [id number]) Balance Tests Single Limb Standing Single Limb- Right >30 sec Single Limb- Left 15 sec PT-OP-F Manual Assessment Start: 12/13/24 13:03 Freq: Status: Active Protocol: Document 12/13/24 15:20 [facility] (Rec: 12/13/24 17:03 [facility] [id number]) Manual Assessments Joint Mobility Assessment Joint Mobility Assessment R iliac crest higher, R PSIS more post, equal greater trochanters, pelvis sheared R, thoracic rot R PT-OP-G Mobility & Gait Start: 12/13/24 13:03 Freq: Status: Active Protocol: Document 12/13/24 15:20 [facility] (Rec: 12/13/24 17:03 [facility] [id number]) OP Gait Assessment Comments Gait Comments dec stance time on RLE w/dec push off, harder landig on LLE PT-OP-J Posture/Palpation/Skin Start: 12/13/24 13:03 Freq: Status: Active Protocol: Document 12/13/24 15:20 [facility] (Rec: 12/13/24 17:03 [facility] [id number]) Posture Evaluation Razia Postural Classification System Razia Postural Classifications Posterior/Anterior Lumbar Protective Mechanism Left AP 1 Lumbar Protective Mechanism Right AP 1 Lumbar Protective Mechanism Left PA 0 Lumbar Protective Mechanism Right PA 1 PT-OP-L Special Tests Start: 12/13/24 13:03 Freq: Status: Active Protocol: Document 12/13/24 15:20 [facility] (Rec: 12/13/24 17:03 [facility] [id number]) Special Tests Hip Special Tests EMILY Test Results neg Comments FADER neg Slump Test Results neg SLR Test Results minor tightness about 80 deg SLR B PT-OP-M Strength Start: 12/13/24 13:03 Freq: Status: Active Protocol: Document 12/13/24 15:20 [facility] (Rec: 12/13/24 17:03 [facility] [id number]) Hip Strength Hip Manual Muscle Testing Right Flexion (L2) 3+ Fair+ Extension (S1) 5 Normal Abduction 4 Good Adduction 4 Good External Rotation 3+ Fair+ Internal Rotation 5 Normal Comments twinge in back w/flex Left Flexion (L2) 4- Good- Extension (S1) 5 Normal Abduction 4- Good- Adduction 4 Good External Rotation 3+ Fair+ Internal Rotation 5 Normal Knee Strength Knee Manual Muscle Testing Right Flexion (S2) 5 Normal Extension (L3) 5 Normal Left Flexion (S2) 5 Normal Extension (L3) 5 Normal Ankle/Foot Strength Ankle and Foot Manual Muscle Testing Right Dorsiflexion (L4) 5 Normal Plantarflexion (S1) 5 Normal Comments PF tested seated Left Dorsiflexion (L4) 5 Normal Plantarflexion (S1) 5 Normal PT-OP-Q Treatments Start: 12/13/24 13:03 Freq: Status: Active Protocol: Document 01/09/25 17:12 [facility] (Rec: 01/09/25 17:32 NB Laptop) Gym Equipment Therapeutic Ball seated Ball Size/Color 65 cm Body Position seated Reps/Duration 10 ea Comments 1. paloff press 2 [place] bands x10 2. rot trunk x10 B - cues for UT overactivation and breath and pacing with fatigue Therapeutic Exercises Supine Exercises LTR Supine Exercise Name no ball Side bilateral Reps/Minutes 10 Comments cues core and segmental rot bridging Supine Exercise Name 1. DL 2. SL Side bilateral Reps/Minutes 1. x5 2. x5 ea, x5 ea w/ feet closer for gluteal focus Comments cues segmental and breath Sidelying Exercises reverse clamshell Sidelying Exercise Name review HEP Side bilateral Equipment Used L1 Reps/Minutes x10 ea Comments cues TrA and breath hip abduction Sidelying Exercise Name clamshells - HEP review Resistance Lvl 3 Tb stretched around knees Reps/Minutes 5 ea Comments min cues for no pelvic rot, TrA and breath Therapeutic Activity Therapeutic Activity car positioning Name Patient ed increased hip angle , and LE's very close to steering wheel Reps/Minutes Pt's car Comments Pt adjusted per 01/04 instruction; no further adjustments made: pedals ie increased hip and knee flexion when seated at rest. With seat back and patient pressing pedals the low back remains on the back rest (tactile cues to make patient aware back/ pelvis should not shift forward). Pt notes R weightshifting: Discussion of PF on L foot rest for long drives for increasing LLE posterior chain and equal weightbearing over ischial tuberosities. Self-Care/Home Management Treatment Education Other Education edu to pt w/ visual aids re: interrelationship of diaphragm , TrA, and pelvic floor and importance of breathwork for core stability and maintaining intra-abdominal pressure. PT-OP-T Assessment and Plan Start: 12/13/24 13:03 Freq: Status: Active Protocol: Document 01/09/25 17:12 NBM (Rec: 01/09/25 17:32 NBM Laptop) Physical Therapy Assessment Goals strength Short Term Goal (STG) Pt will be indep w/HEP 12/15/24: Issued HEP: seated HS stretch, resisted clamshells supine/sidelying, resisted bridging; Lvl 3 Tb and HO given. STG Duration 15 Nursing Home Goal (LTG) Pt will score at least 4+/5 on all BLE MMT and at least 3/5 on LPM to show improved stability LTG Duration 6/2 activity Short Term Goal (STG) Pt will report no pain w/ ascending stairs STG Duration 5/4 Nursing Home Goal (LTG) Pt will report no pain w/ driving to [employer] ( >1.5 hr) LTG Duration 6/4 Assessment Summary Assessment Jinny presents with 0/10 pain which is unchanged throughout session. Treatment focus on seat positioning in pt's car and HEP review with emphasis on core and hip strengthening. Pt demonstrates improved self -awareness for seated ergonomics for driving with appropriate pelvic and lumbar supports and will report back after next long drive this week. She is encouraged to utilize LTR w/ PPT in morning when awakening with low back stiffness. She requires cues in sidelying for TrA activation with breathwork, and seated on ball for slower pacing with fatigue, and demos improved performance after cueing. Physical Therapy Plan Frequency and Duration Frequency of Treatment 1-2x/wk Duration of treatment (weeks) 8 Plan of Care Start Date 12/13/24 Plan of Care End Date 02/07/25 Next Visit Focus/Plan Next Note Type Treatment Note Next Visit Plan Check response to long drive with adjusted seat position in car, stairs?; pelvic mobilization, core stability, HS curls on ball, strengthening core/hip
--- NOTE | 2025-01-16 16:22 | PT.OTN ---
Current Diagnoses Other specified enthesopathies of unspecified lower limb, excluding foot (01/16/25) Physical Therapy Treatment Note PT-OP-A Visit Information Start: 12/13/24 13:03 Freq: Status: Active Protocol: Document 01/16/25 14:46 NBM (Rec: 01/16/25 16:21 NBM Laptop) Out-Patient Physical Therapy Visit Information Visit Information Visit Type Treatment Note Visit Start Time 14:38 Visit Stop Time 15:22 Visit Number 7/15 Number of BACCARAT MANAGER Visits 3 PT-OP-B Current Condition Start: 12/13/24 13:03 Freq: Status: Active Protocol: Document 12/13/24 15:20 [facility] (Rec: 12/13/24 17:03 [facility] [id number]) Current Condition History of Current Condition Onset Date 5 months ago (end of Jul) Current Complaints R ischial tuberosity History of Current Condition Pt reports it all started after she was rowing (4 people boat) and she had the bow position and after that she started to notice the pain. It was so bad that the pain was so severe. Walking up and down stairs was painful. Did some PT and it didn't do any good after 1 month. Bands bother her legs. She gets out and walks so she doesn't sit too long. She has been trying to be more aware in the boat. Xrays done but nothing significant seen. Found some OA in back Lower lumbar but they decided that wasn't that causing pain. Has neuropathy that is worse on LLE. Treatment Goals Patient/Caregiver Goals pain not to be so bad so can drive all the way to [place]/ [place] (1.5 hrs), wants to know what to in boat to avoid pain PT-OP-C Subjective Start: 12/13/24 13:03 Freq: Status: Active Protocol: Document 01/16/25 14:46 NBM (Rec: 01/16/25 16:21 NBM Laptop) OP-PT Subjective Patient Comments Patient Comments Jinny has no pain right now, and when waking up with stiffness moves her lower legs side to side and it helps. When she was in [employer] rowing there was discomfort in that particular boat and position and her legs were extended out, but the boat gets narrow so you're not in alignment at all. Your hips are here and your legs are here. She has more awareness of alignment and core to stabilize lower back. She thinks adjusting her seat in her car has made a huge difference. On January 08 she hurt a bit on the way [facility] but that was after sitting two hours and not as bad as before . She drove up to [place] and decided to get out and walked 250 steps which helped, but it wasn't bad like it used to be. End of session she reports she will drive to [place] on Wednesday and thinks she may be ready to discharge next visit, and wants to save her PT visits in case she needs them after getting a sailboat later this year. Patient Reported Progress Improving PT-OP-D Balance Start: 12/13/24 13:03 Freq: Status: Active Protocol: Document 12/13/24 15:20 [facility] (Rec: 12/13/24 17:03 [facility] [id number]) Balance Tests Single Limb Standing Single Limb- Right >30 sec Single Limb- Left 15 sec PT-OP-F Manual Assessment Start: 12/13/24 13:03 Freq: Status: Active Protocol: Document 12/13/24 15:20 [facility] (Rec: 12/13/24 17:03 [facility] [id number]) Manual Assessments Joint Mobility Assessment Joint Mobility Assessment R iliac crest higher, R PSIS more post, equal greater trochanters, pelvis sheared R, thoracic rot R PT-OP-G Mobility & Gait Start: 12/13/24 13:03 Freq: Status: Active Protocol: Document 12/13/24 15:20 [facility] (Rec: 12/13/24 17:03 [facility] [id number]) OP Gait Assessment Comments Gait Comments dec stance time on RLE w/dec push off, harder landig on LLE PT-OP-J Posture/Palpation/Skin Start: 12/13/24 13:03 Freq: Status: Active Protocol: Document 12/13/24 15:20 [facility] (Rec: 12/13/24 17:03 [facility] [id number]) Posture Evaluation Razia Postural Classification System Razia Postural Classifications Posterior/Anterior Lumbar Protective Mechanism Left AP 1 Lumbar Protective Mechanism Right AP 1 Lumbar Protective Mechanism Left PA 0 Lumbar Protective Mechanism Right PA 1 PT-OP-L Special Tests Start: 12/13/24 13:03 Freq: Status: Active Protocol: Document 12/13/24 15:20 [facility] (Rec: 12/13/24 17:03 [facility] [id number]) Special Tests Hip Special Tests EMILY Test Results neg Comments FADER neg Slump Test Results neg SLR Test Results minor tightness about 80 deg SLR B PT-OP-M Strength Start: 12/13/24 13:03 Freq: Status: Active Protocol: Document 12/13/24 15:20 [facility] (Rec: 12/13/24 17:03 [facility] [id number]) Hip Strength Hip Manual Muscle Testing Right Flexion (L2) 3+ Fair+ Extension (S1) 5 Normal Abduction 4 Good Adduction 4 Good External Rotation 3+ Fair+ Internal Rotation 5 Normal Comments twinge in back w/flex Left Flexion (L2) 4- Good- Extension (S1) 5 Normal Abduction 4- Good- Adduction 4 Good External Rotation 3+ Fair+ Internal Rotation 5 Normal Knee Strength Knee Manual Muscle Testing Right Flexion (S2) 5 Normal Extension (L3) 5 Normal Left Flexion (S2) 5 Normal Extension (L3) 5 Normal Ankle/Foot Strength Ankle and Foot Manual Muscle Testing Right Dorsiflexion (L4) 5 Normal Plantarflexion (S1) 5 Normal Comments PF tested seated Left Dorsiflexion (L4) 5 Normal Plantarflexion (S1) 5 Normal PT-OP-Q Treatments Start: 12/13/24 13:03 Freq: Status: Active Protocol: Document 01/16/25 14:46 NB (Rec: 01/16/25 16:21 NBM Laptop) Gym Equipment Therapeutic Ball seated Ball Size/Color 65 cm Body Position seated Reps/Duration 10 ea Comments 1. paloff press 2 [place] bands x10 - cues for LE alignment 2. rot trunk progressed from arms bent x10 to arms extended 2x5 B - cues for LE alignment, UT overactivation, scap setting, breath and pacing with fatigue Therapeutic Exercises Supine Exercises LTR Supine Exercise Name 1. no ball 2. w/ ball Side bilateral Resistance 65 cm green physioball Reps/Minutes 10 Comments good awareness of PPT, cues for heel dig with ball. bridging Supine Exercise Name 1. DL with ball Side bilateral Resistance 65 cm green physioball Reps/Minutes x5 Comments cue LE alignment and heel dig. Pt reports discomfort in R>L hip flexors Sidelying Exercises reverse clamshell Sidelying Exercise Name verbal review HEP Side bilateral Equipment Used L1 Reps/Minutes x10 ea Comments cues TrA and breath hip abduction Sidelying Exercise Name clamshells - verbal review HEP Resistance Lvl 3 Tb stretched around knees Reps/Minutes 5 ea Comments min cues for no pelvic rot, TrA and breath Gait Training Gait Activity stairs Description x4 6 training stairs Distance/Duration x3 ascend/descend (x2 no rail, x1 R rail descending) Comments assessing for STG activity: Pt will report no pain w/ ascending stairs - Goal met. VC for R knee valgus with descent; improves with rail. Manual Therapy Treatment Consent Patient gave verbal consent for manual Yes treatment Self-Care/Home Management Treatment Activities Self-Care/Home Management Activities i/s in self-IASTM to B LEs in sitting and long sitting w/ rolling pin, therawand, and The Stick with most positive feedback using rolling pin; distal to proximal due to varicose veins. PT-OP-T Assessment and Plan Start: 12/13/24 13:03 Freq: Status: Active Protocol: Document 01/16/25 14:46 NBM (Rec: 01/16/25 16:21 NBM Laptop) Physical Therapy Assessment Goals strength Short Term Goal (STG) Pt will be indep w/HEP 12/15/24: Issued HEP: seated HS stretch, resisted clamshells supine/sidelying, resisted bridging; Lvl 3 Tb and HO given. 01/16/25: Pt is consistent w/ HEP and identifying which stretches/ex's to manage symptoms prn. seated resisted trunk rotation progressed from arms bent to arms extended. I /s in self-IASTM w/ rolling pin to LEs. 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 STG Duration 54 (01/16/25: GOAL MET) Retirement Goal (LTG) Pt will report no pain w/ driving to [email or web address] ( >1.5 hr) 01/16/25: Last trip 01/08/25 pt had improved pain returning, but had sat for two hours prior. Mild discomfort driving up to [place]. Next [place] trip Wednesday 01/17. LTG Duration / (01/16/25: Progressing) Progress Towards Goals Progress Towards Goals Progressing Toward Goals,Goals Met Progress Comments Goals Met: STG strength goal: Pt will be indep w/HEP, and STG activity goal: Pt will report no pain w/ascending stairs Progressing: LTG activity goal : Pt will report no pain w/ driving to [employer] ( >1.5 hr) Assessment Summary Assessment Jinny continues to present without pain. Treatment focus on goal assessment and HEP review in preparation for possible discharge next visit. Short term strength and activity goals met today and pt is progressing towards long -term activity goal. Her seated resisted trunk rotation is progressed from arms bent to arms extended w/ cues for scapular setting and breath, which improve tendency towards UT overactivation compensation. Added to HEP: supine LTR and HS curls using 65 cm ball - no HO provided. Pt i/s in self-STM B LEs in sitting and long sitting using rolling pin, distal to proximal due to varicose veins . Physical Therapy Plan Frequency and Duration Frequency of Treatment 1-2x/wk Duration of treatment (weeks) 8 Plan of Care Start Date 12/13/24 Plan of Care End Date 02/07/25 Therapeutic Interventions Therapeutic Interventions Canalithic Repositioning, Coordination Training Modalities Cold Pack/Ice Massage,Electric Stimulation,Hot Packs, Infrared Therapy,Ultrasound Next Visit Focus/Plan Next Note Type Treatment Note Next Visit Plan Assess for possible D/C (LTG strength goal and LTG activity goal). Check response to [place] drive with adjusted seat position in car; pelvic mobilization, core stability, strengthening core/hip
--- NOTE | 2025-01-22 15:17 | PT.OTN ---
Current Diagnoses Other specified enthesopathies of unspecified lower limb, excluding foot (01/22/25) Physical Therapy Treatment Note PT-OP-A Visit Information Start: 12/13/24 13:03 Freq: Status: Active Protocol: Document 01/22/25 14:38 [facility] (Rec: 01/22/25 15:17 [facility] [id number]) Out-Patient Physical Therapy Visit Information Visit Information Visit Type Discharge Summary Visit Start Time 14:36 Visit Stop Time 15:15 Visit Number 8 Number of CULLET CRUSHER Visits 0 PT-OP-B Current Condition Start: 12/13/24 13:03 Freq: Status: Active Protocol: Document 12/13/24 15:20 [facility] (Rec: 12/13/24 17:03 [facility] [id number]) Current Condition History of Current Condition Onset Date 5 months ago (end of Jul) Current Complaints R ischial tuberosity History of Current Condition Pt reports it all started after she was rowing (4 people boat) and she had the bow position and after that she started to notice the pain. It was so bad that the pain was so severe. Walking up and down stairs was painful. Did some PT and it didn't do any good after 1 month. Bands bother her legs. She gets out and walks so she doesn't sit too long. She has been trying to be more aware in the boat. Xrays done but nothing significant seen. Found some OA in back Lower lumbar but they decided that wasn't that causing pain. Has neuropathy that is worse on LLE. Treatment Goals Patient/Caregiver Goals pain not to be so bad so can drive all the way to [place]/ [place] (1.5 hrs), wants to know what to in boat to avoid pain PT-OP-C Subjective Start: 12/13/24 13:03 Freq: Status: Active Protocol: Document 01/22/25 14:38 [facility] (Rec: 01/22/25 15:17 [facility] [id number]) OP-PT Subjective Patient Comments Patient Comments no issues anymore w/driving and did well on her race. Patient Reported Progress Improving PT-OP-D Balance Start: 12/13/24 13:03 Freq: Status: Active Protocol: Document 12/13/24 15:20 [facility] (Rec: 12/13/24 17:03 [facility] [id number]) Balance Tests Single Limb Standing Single Limb- Right >30 sec Single Limb- Left 15 sec PT-OP-F Manual Assessment Start: 12/13/24 13:03 Freq: Status: Active Protocol: Document 12/13/24 15:20 [facility] (Rec: 12/13/24 17:03 [facility] [id number]) Manual Assessments Joint Mobility Assessment Joint Mobility Assessment R iliac crest higher, R PSIS more post, equal greater trochanters, pelvis sheared R, thoracic rot R PT-OP-G Mobility & Gait Start: 12/13/24 13:03 Freq: Status: Active Protocol: Document 12/13/24 15:20 [facility] (Rec: 12/13/24 17:03 [facility] [id number]) OP Gait Assessment Comments Gait Comments dec stance time on RLE w/dec push off, harder landig on LLE PT-OP-J Posture/Palpation/Skin Start: 12/13/24 13:03 Freq: Status: Active Protocol: Document 01/22/25 14:38 [facility] (Rec: 01/22/25 15:17 [facility] [id number]) Posture Evaluation Razia Postural Classification System Razia Postural Classifications Posterior/Anterior Lumbar Protective Mechanism Left AP 2 Lumbar Protective Mechanism Right AP 3 Lumbar Protective Mechanism Left PA 3 Lumbar Protective Mechanism Right PA 3 PT-OP-L Special Tests Start: 12/13/24 13:03 Freq: Status: Active Protocol: Document 12/13/24 15:20 [facility] (Rec: 12/13/24 17:03 [facility] [id number]) Special Tests Hip Special Tests EMILY Test Results neg Comments FADER neg Slump Test Results neg SLR Test Results minor tightness about 80 deg SLR B PT-OP-M Strength Start: 12/13/24 13:03 Freq: Status: Active Protocol: Document 01/22/25 14:38 [facility] (Rec: 01/22/25 15:17 [facility] [id number]) Hip Strength Hip Manual Muscle Testing Right Flexion (L2) 4+ Good+ Extension (S1) 5 Normal Abduction 5 Normal Adduction 5 Normal External Rotation 4+ Good+ Internal Rotation 5 Normal Left Flexion (L2) 5 Normal Extension (S1) 4+ Good+ Abduction 4+ Good+ Adduction 5 Normal External Rotation 5 Normal Internal Rotation 5 Normal Knee Strength Knee Manual Muscle Testing Right Flexion (S2) 5 Normal Extension (L3) 5 Normal Left Flexion (S2) 5 Normal Extension (L3) 5 Normal Ankle/Foot Strength Ankle and Foot Manual Muscle Testing Right Dorsiflexion (L4) 5 Normal Plantarflexion (S1) 5 Normal Comments PF tested seated Left Dorsiflexion (L4) 5 Normal Plantarflexion (S1) 5 Normal PT-OP-Q Treatments Start: 12/13/24 13:03 Freq: Status: Active Protocol: Document 01/22/25 14:38 [facility] (Rec: 01/22/25 15:17 [facility] [id number]) Therapeutic Exercises Supine Exercises LTR Supine Exercise Name w/o ball Side bilateral Reps/Minutes 10 Comments cues inc ROM bridging Supine Exercise Name SL Side bilateral Reps/Minutes 8 ea Comments cues segmental Piriformis stretch Supine Exercise Name piriformis stretch Reps/Minutes 60 sec each LE X 1 Comments cues hand grab position Sidelying Exercises reverse clamshell Sidelying Exercise Name verbal review HEP Side bilateral Equipment Used L1 Reps/Minutes x10 ea Comments cues TrA and breath hip abduction Sidelying Exercise Name clamshells - verbal review HEP Resistance Lvl 3 Tb stretched around knees Reps/Minutes 10 ea Comments min cues for no pelvic rot, TrA and breath Sitting Exercises core warm up Sitting Exercise Name paloff press then rotation on ball Side bilateral Resistance [place] band Equipment Used 65cm ball Reps/Minutes 10 Comments added 5 sec hold at end stretch Sitting Exercise Name SL HS Side bilateral Reps/Minutes 30 sec ea Comments cues for form Other Exercises isometrics Other Exercise Name BLE MMT and LPM PT-OP-T Assessment and Plan Start: 12/13/24 13:03 Freq: Status: Active Protocol: Document 01/22/25 14:38 [facility] (Rec: 01/22/25 15:17 [facility] [id number]) Physical Therapy Assessment Goals strength Short Term Goal (STG) Pt will be indep w/HEP 12/15/24: Issued HEP: seated HS stretch, resisted clamshells supine/sidelying, resisted bridging; Lvl 3 Tb and HO given. 01/16/25: Pt is consistent w/ HEP and identifying which stretches/ex's to manage symptoms prn. seated resisted trunk rotation progressed from arms bent to arms extended. I /s in self-IASTM w/ rolling pin to LEs. STG Duration 01/18 (01/16/25: GOAL MET) Halfway Goal (LTG) Pt will score at least 4+/5 on all BLE MMT and at least 3/5 on LPM to show improved stability LTG Duration mostly achieved activity Short Term Goal (STG) Pt will report no pain w/ ascending stairs 01/16/25: Goal met. STG Duration / (01/16/25: GOAL MET) Halfway Goal (LTG) Pt will report no pain w/ driving to [employer] ( >1.5 hr) 01/16/25: Last trip 01/08/25 pt had improved pain returning, but had sat for two hours prior. Mild discomfort driving up to [place]. Next [employer] trip Wednesday 01/17. LTG Duration achieved 01/22 Assessment Summary Assessment Pt has made excellent progress w/PT w/good strength at this time and indep w/ HEP. She has met goals mostly except minor weakness that she will cont to work on HEP to improve. DC to HEP at this time. Physical Therapy Plan Discharge Physical Therapy Discharge Reasons Goals Met
== END 2025-01-24 14:32 | disposition home or self-care (01) ==
LOC: PHYS 14:30
PROVIDERS: Family Provider Specialist; PCP Specialist; Referring Provider Emergency Medicine; Visit Provider Specialist
DX: M76.899 Other specified enthesopathies of unspecified lower limb, excluding foot (principal)
CPT/HCPCS: 97110; 97112; 97116; 97140; 97162; 97530; 97535

== ENCOUNTER → 2025-07-27 12:49 | Outpatient (CLI) | payer OTHER, SELFPAY ==
[2025-07-27 15:12] LABS: Influenza A - CEPHEID Flu A NEGATIVE (NEGATIVE); Influenza B - CEPHEID Flu B NEGATIVE (NEGATIVE)
[2025-07-27 15:22] LABS: COVID-19 CEPHEID 4-PLEX PCR Negative (Negative)
== END ==
PROVIDERS: Family Provider Specialist; PCP Specialist; Visit Provider Nurse Practitioner Family
DX: J02.9 Acute pharyngitis, unspecified (principal)
CPT/HCPCS: 87070; 87637